=== PATIENT | male | born 1965 | race Caucasian/White ===

== ENCOUNTER 2020-05-28 08:12 | Outpatient (REF) | payer OTHER, SELFPAY ==
[2020-05-28 09:35] LABS: Basophils Percent Auto 0.8 % (0-2); Eosinophils Absolute Auto 0.2 X10*3/uL (0.0-0.4); Eosinophils Percent Auto 3.2 % (0-4); Hematocrit 44.1 % (42-52); Hemoglobin 14.6 g/dl (14.0-18.0); Imm Gran Abs Auto 0.01 X10*3/uL (0.00-0.03); Imm Gran Pct Auto 0.2 % (0.0-0.4); Lymphocytes Absolute Auto 1.8 X10*3/uL (1.2-4.9); Lymphocytes Percent Auto 35.2 % (20-40); MANUAL DIFF FLAG NO; Mean Corpuscular HGB Conc 33.1 g/dl (31.0-36.0); Mean Corpuscular Hemoglobin 30.9 pg (27.0-33.0); Mean Corpuscular Volume 93.4 fL (80-98); Monocytes Absolute Auto 0.5 X10*3/uL (0.1-1.2); Monocytes Percent Auto 10.5 % (2-11); Neutrophils Absolute Auto 2.5 X10*3/uL (2.0-8.3); Neutrophils Percent Auto 50.1 % (45-73); Platelet Count 248 X10*3/uL (160-400); Red Blood Count 4.72 X10*6/uL (4.60-5.80); Red Cell Distribution Width 12.2 % (11.0-16.0)
[2020-05-28 10:08] LABS: Alanine Aminotransferase 22 U/L (0-40); Albumin Level 4.3 g/dL (3.5-5.0); Alkaline Phosphatase 91 U/L (39-117); Anion Gap 12 (12-20); Aspartate Amino Transferase 27 U/L (5-37); Bilirubin Total 0.6 mg/dL (0.0-1.0); Blood Urea Nitrogen 19 mg/dL (9-16); Carbon Dioxide 27 mmol/L (22-29); Chloride 106 mmol/L (96-108); Cholesterol 203 mg/dL; Estimated Glomerular Filt Rate 58; Glucose Random 106 mg/dL (60-115); HDL Cholesterol 68 mg/dL; LDL Cholesterol Calculated 124 mg/dl; Potassium 4.8 mmol/L (3.3-5.1); Sodium 140 mmol/L (135-145); Total Protein 7.3 g/dL (6.5-8.0); Triglycerides 55 mg/dL
[2020-05-28 10:30] LABS: Free T4 (Free Thyroxine) 0.93 ng/dL (0.71-1.85); Prostate Specific Antigen Scr 0.25 ng/mL (<0.05-4.0); Thyroid Stimulating Hormone 0.59 uIU/mL (0.32-4.0)
[2020-05-29 12:27] LABS: Folate 14.3 ng/mL (> or = 4.0); Vitamin B12 270 pg/mL (200-900)
== END 2020-05-28 08:13 | disposition home or self-care (01) ==
LOC: HO.LAB 08:12
PROVIDERS: PCP Internal Medicine; Visit Provider Internal Medicine
DX: Z00.00 Encounter for general adult medical examination without abnormal findings (principal); E78.00 Pure hypercholesterolemia, unspecified; Z12.5 Encounter for screening for malignant neoplasm of prostate
CPT/HCPCS: 36415; 80053; 80061; 82607; 82746; 84153; 84439; 84443; 85025

== ENCOUNTER 2021-03-31 07:32 | Outpatient (REF) | payer OTHER, SELFPAY ==
[2021-03-31 07:42] LABS: MANUAL DIFF FLAG NO
[2021-03-31 08:43] LABS: Basophils Percent Auto 0.3 % (0-2); Eosinophils Absolute Auto 0.2 X10*3/uL (0.0-0.4); Eosinophils Percent Auto 3.2 % (0-4); Hematocrit 45.4 % (42.0-52.0); Hemoglobin 15.1 g/dl (14.0-18.0); Imm Gran Abs Auto 0.01 X10*3/uL (0.00-0.03); Imm Gran Pct Auto 0.2 % (0.0-0.4); Lymphocytes Percent Auto 33.4 % (20-40); Mean Corpuscular HGB Conc 33.3 g/dl (31.0-36.0); Mean Corpuscular Hemoglobin 31.5 pg (27.0-33.0); Mean Corpuscular Volume 94.6 fL (80.0-98.0); Mean Platelet Volume 8.8 fL (9.4-12.4); Monocytes Absolute Auto 0.6 X10*3/uL (0.1-1.2); Monocytes Percent Auto 9.3 % (2-11); Neutrophils Absolute Auto 3.2 x10*3/uL (2.0-8.3); Neutrophils Percent Auto 53.6 % (45-73); Platelet Count 260 X10*3/uL (160-400); Red Cell Distribution Width 12.3 % (11.0-16.0); White Blood Count 5.9 X10*3/uL (4.8-10.8)
[2021-03-31 09:03] LABS: Estimated Average Glucose 108 mg/dL; Hemoglobin A1c % 5.4 %
[2021-03-31 09:13] LABS: Alanine Aminotransferase 21 U/L (0-40); Albumin Level 4.2 g/dL (3.5-5.0); Alkaline Phosphatase 85 U/L (39-117); Anion Gap 10 (12-20); Aspartate Amino Transferase 20 U/L (5-37); Bilirubin Total 0.6 mg/dL (0.0-1.0); Blood Urea Nitrogen 18 mg/dL (9-16); Calcium 9.8 mg/dL (8.4-10.2); Carbon Dioxide 28 mmol/L (22-29); Chloride 107 mmol/L (96-108); Cholesterol 223 mg/dL; Estimated Glomerular Filt Rate > 60; Glucose Random 101 mg/dL (60-115); HDL Cholesterol 74 mg/dL; LDL Cholesterol Calculated 133 mg/dl; Potassium 4.4 mmol/L (3.3-5.1); Sodium 141 mmol/L (135-145); Total Protein 7.4 g/dL (6.5-8.0); Triglycerides 84 mg/dL
[2021-03-31 09:41] LABS: Folate 15.9 ng/mL (> or = 4.0); Vitamin B12 315 pg/mL (200-900)
[2021-03-31 09:43] LABS: Free T4 (Free Thyroxine) 1.05 ng/dL (0.71-1.85); Prostate Specific Antigen Scr 0.18 ng/mL (<0.05-4.0); Thyroid Stimulating Hormone 1.36 uIU/mL (0.32-4.0)
== END 2021-03-31 07:33 | disposition home or self-care (01) ==
LOC: HO.LAB 07:32
PROVIDERS: PCP Internal Medicine; Visit Provider Internal Medicine
DX: K21.9 Gastro-esophageal reflux disease without esophagitis (principal); E78.00 Pure hypercholesterolemia, unspecified; N28.9 Disorder of kidney and ureter, unspecified; R73.02 Impaired glucose tolerance (oral)
CPT/HCPCS: 36415; 80053; 80061; 82607; 82746; 83036; 84153; 84439; 84443; 85025

== ENCOUNTER 2021-06-22 14:28 | Outpatient (REF) | payer OTHER, SELFPAY ==
--- NOTE | ~2021-06-22 | US_ITS ---
EXAMINATION: US THYROID CLINICAL INFORMATION: Goiter COMPARISON: None TECHNIQUE: Linear transducer grayscale and color Doppler examination with attention to the region of the thyroid. FINDINGS: SIZE: Measurements of the thyroid lobes and nodules are given in sagittal, anteroposterior and transverse dimensions respectively. Right Thyroid Lobe: 5.5 x 1.8 x 1.8 cm, volume 9.3 mL. Parenchyma: The gland echotexture is homogeneous. Thyroid vascularity is normal. Left Thyroid Lobe: 5.5 x 2.1 x 2.2 cm, volume 13.3 mL. Parenchyma: The gland echotexture is homogeneous. Thyroid vascularity is increased. Isthmus: 0.7 cm in maximum AP dimension. Estimated total number of nodules greater than or equal to 1 cm: 1. [employer] nodules are described as follows: 1. Location: Left lower. Size: 3.1 x 1.7 x 2.8 cm, volume 7.59 mL. Nodule characteristics: Composition: Solid/almost completely solid (2). Echogenicity: Hypoechoic (2). Shape: Not taller than wide (0). Margins: Lobulated (2). Echogenic Foci: Punctate echogenic foci (3). ACR TI-RADS total points: 9 ACR TI-RADS category: 5 2. Location: Right mid lateral. Size: 0.5 x 0.3 x 0.4 cm, volume 0.04 mL. Nodule characteristics: Composition: Spongiform (0). Echogenicity: 0 Shape: 0 Margins: 0 Echogenic Foci: 0 ACR TI-RADS total points: 0 ACR TI-RADS category: 1 NODES: There are 2 normal-appearing right cervical lymph nodes in zone 3. These measure 1.3 x 0.5 x 0.7 cm and 1.2 x 0.3 x 0.9 cm. There is a left cervical lymph node in zone 4. This is upper normal in size. This measures 1.6 x 0.5 x 1 cm. This has a slitlike hilum and normal hilar flow. US/US thyroid IMPRESSION: Suspicious nodule in the inferior left lobe and left side of the isthmus. According to TI RADS criteria, fine needle aspiration recommended. ACR TI-RADS RECOMMENDATION REFERENCE: Ultrasound-guided fine-needle aspiration, followup ultrasound, no further follow up. * TR1 (0 point) and TR 2 (2 points): No FNA or follow up * TR3 (3 points): FNA if more than or equal to 2.5 cm in maximum dimension, followup ultrasound in 1, 3 and 5 years if 1.5 to 2.4 cm in maximum dimension. Findings will be communicated by the [place] work flow physical damage appraiser. * TR4 (4-6 points): FNA if more than or equal to 1.5 cm in maximum dimension, followup ultrasound in 1, 2, 3 and 5 years if 1 to 1.4 cm in maximum dimension. * TR5 (more than or equal to 7 points): FNA if more than or equal to 1 cm in maximum dimension, followup ultrasound every year for 5 years if 0.5 to 0.9 cm in maximum dimension. * TR3, TR4 or TR5 nodules that are below the size threshold for follow up receive no follow up.
== END 2021-06-22 14:29 | disposition home or self-care (01) ==
LOC: HO.HMGCX 14:28
PROVIDERS: PCP Internal Medicine; Visit Provider Internal Medicine
DX: E04.9 Nontoxic goiter, unspecified (principal)
CPT/HCPCS: 76536

== ENCOUNTER → 2021-07-07 11:05 | Outpatient (BNVA) | payer OTHER, SELFPAY | PROVIDERS: PCP Internal Medicine; Visit Provider Internal Medicine Endocrinology, Diabetes & Metabolism | DX: Z13.89 Encounter for screening for other disorder (principal) ==

== ENCOUNTER 2021-07-11 11:23 | Outpatient (REF) | payer OTHER, SELFPAY ==
--- NOTE | ~2021-07-11 | US_ITS ---
EXAMINATION: US ULTRASOUND-GUIDED FINE-NEEDLE ASPIRATION LEFT THYROID NODULE CLINICAL INFORMATION: Nontoxic heterogeneous left thyroid nodule. COMPARISON: None. TECHNIQUE: Following explaining ultrasound-guided left thyroid nodule fine-needle aspiration biopsy procedure, benefits and risks, a written consent was obtained. Patient was placed supine on the ultrasound stretcher with head extended. Preliminary ultrasound imaging was performed and an optimal site was selected along the left neck for biopsy access. The anterior neck area was cleaned and draped in the usual sterile manner. 1% lidocaine was injected at the puncture site. Under sterile ultrasound guidance, a 22-gauge fine-needle biopsy attached to a syringe was advanced into the left thyroid nodule and biopsy aspiration was performed x5. The lesion appears very vascular. Also the cystic area of the lesion was aspirated. Postprocedure complete hemostasis was achieved at the puncture site. Sterile dressing was applied postprocedure. FINDINGS: There is a complex 3.1 cm nodule left lobe. A 5-pass fine-needle biopsy aspiration of this nodule was performed. Preliminary results from pathologist revealed few clumped cells on one of the slides. Further cytology testing to follow. US/US guided fine needle asp IMPRESSION: Successful ultrasound-guided left thyroid nodule fine needle biopsy/aspiration performed without immediate complications.
[2021-07-11] MEDS: Lidocaine HCl 1 % MPF 5 ML VIAL SUBCUT (12:26)
== END 2021-07-11 11:24 | disposition home or self-care (01) ==
LOC: HO.US 11:23
PROVIDERS: Visit Provider Internal Medicine Endocrinology, Diabetes & Metabolism
DX: E04.1 Nontoxic single thyroid nodule (principal)
CPT/HCPCS: 10005; 88172; 88173; 88177; 88305

== ENCOUNTER → 2021-07-26 10:31 | Outpatient (BNVA) | payer OTHER, SELFPAY | PROVIDERS: PCP Internal Medicine; Visit Provider Internal Medicine Endocrinology, Diabetes & Metabolism | DX: E04.9 Nontoxic goiter, unspecified (principal) ==

== ENCOUNTER 2021-08-17 11:17 | Outpatient (REF) | payer OTHER, SELFPAY ==
[2021-08-17 13:26] LABS: Urine Cytology See Pathology rpt
[2021-08-17 13:47] LABS: Appearance Urine CLEAR; Color Urine YELLOW; Glucose Urine UA NEG (NEG); Leukocyte Esterase Urine NEG (NEG); Nitrite Urine NEG (NEG); PH 6.5 (5.0-8.0); Urine Blood TRACE (NEG); Urine Ketones NEG (NEG); Urine Protein NEG (NEG-TRACE)
[2021-08-17 14:22] LABS: Squamous Epithelial Cell Urine 1+ /LPF; WBC Urine 0 /HPF (0-4)
== END 2021-08-17 11:18 | disposition home or self-care (01) ==
LOC: HO.LAB 11:17
PROVIDERS: PCP Internal Medicine; Visit Provider Internal Medicine
DX: R31.9 Hematuria, unspecified (principal)
CPT/HCPCS: 81001; 88112

== ENCOUNTER 2021-09-06 10:33 | Outpatient (REF) | payer OTHER, SELFPAY ==
--- NOTE | ~2021-09-06 | US_ITS ---
EXAMINATION: US SCROTUM CLINICAL INFORMATION: Testicular mass. COMPARISON: None. TECHNIQUE: A sonogram of the scrotum was performed assessing vines-scale appearance and color Doppler flow. Spectral Doppler analysis of the arterial and venous flow were performed in the testes bilaterally. FINDINGS: RIGHT: Right testicle measures 4.9 x 2.2 x 3.2 cm, volume 18.0 mL. No focal testicular parenchymal lesions are visualized. Spectral Doppler analysis of the arterial and venous flow is normal in the right testis. Right epididymal head is normal in size. There is small echogenic appendix seen adjacent to the epididymal head. This is not clinically palpable at this time but measures 0.2 x 0.2 cm. No right hydrocele or varicocele is seen. Right epididymal Doppler flow is normal. LEFT: Left testicle measures 4.6 x 2.2 x 3.5 cm, volume 18.5 mL. No focal testicular parenchymal lesions are visualized. Spectral Doppler analysis of the arterial and venous flow is normal in the left testis. Left epididymal head is normal in size. No left hydrocele or varicocele is seen. Left epididymal Doppler flow is normal. US/US scrotum IMPRESSION: Unremarkable ultrasound scrotum. There is small echogenic right appendix adjacent to the right epididymal head.
== END 2021-09-06 10:34 | disposition home or self-care (01) ==
LOC: HO.US 10:33
PROVIDERS: Visit Provider Internal Medicine
DX: N50.89 Other specified disorders of the male genital organs (principal)
CPT/HCPCS: 76870

== ENCOUNTER 2021-10-20 09:41 | Outpatient (REF) | payer OTHER, SELFPAY ==
[2021-10-20 16:33] LABS: Urine Cytology See Pathology rpt
== END 2021-10-20 09:42 | disposition home or self-care (01) ==
LOC: HO.LAB 09:41
DX: R31.9 Hematuria, unspecified (principal)
CPT/HCPCS: 88112

== ENCOUNTER 2021-10-27 08:05 | Outpatient (REF) | payer OTHER, SELFPAY ==
--- NOTE | 2021-10-27 08:41 | PM.OP ---
Brief Operative Note Date of Service: 10/27/21 Pre-op diagnosis: Multinodular Thyroid Procedure: This is doctor Nevaeh Lewis. This is an ultrasound-guided fine-needle aspiration report. Date of Examination: 10/27/2021 Indication: Multinodular Thyroid Porcedure: Procedure was explained to the patient. Alternatives, the risk and benefits were discussed. Written consent was obtained. A time-out was also obtained. After sterile preparation, fine-needle aspiration of a left mid pole 3.1 cm thyroid nodule was performed using direct ultrasound guidance to confirm accurate needle placement. Six aspirations were made using 25 gauge needles. Samples were submitted for cytology. 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 The patient tolerated the procedure well. Aftercare instructions were provided. Impression: Uncomplicated fine needle aspiration biopsy of a left mid pole 3.1 cm thyroid nodule under ultrasound guidance. Surgeon: Nevaeh Lewis, DO Was an Internal Communications Specialist used for this Procedure?: No Estimated blood loss (mL): 0
[2021-10-27] MEDS: Lidocaine HCl 1 % 20 ML VIAL SUBCUT (11:45)
== END 2021-10-27 08:06 | disposition home or self-care (01) ==
LOC: HO.US 08:05
PROVIDERS: Visit Provider Internal Medicine Endocrinology, Diabetes & Metabolism
DX: E04.9 Nontoxic goiter, unspecified (principal)
CPT/HCPCS: 10005; 88172; 88173; 88177; 88305

== ENCOUNTER 2021-12-22 08:06 | Outpatient (REF) | payer OTHER, SELFPAY ==
--- NOTE | ~2021-12-22 | US_ITS ---
EXAMINATION: US RETROPERITONEAL LIMITED (RENAL ONLY) CLINICAL INFORMATION: Hematuria, unspecified. COMPARISON: Ultrasound bladder 11/20/2018. TECHNIQUE: Real-time imaging of the kidneys. FINDINGS: RIGHT KIDNEY: 9.7 x 5.3 x 5.5 cm (SAG x AP x TRV). The kidney is normal in size, contour, and echogenicity. Renal cortical thickness is normal. No calculi or focal parenchymal lesions. No hydronephrosis. LEFT KIDNEY: 9.5 x 5.2 x 4.8 cm (SAG x AP x TRV). The kidney is normal in size, contour, and echogenicity. Renal cortical thickness is normal. No calculi or focal parenchymal lesions. No hydronephrosis. US/US renal BI IMPRESSION: Unremarkable renal ultrasound..
== END 2021-12-22 08:07 | disposition home or self-care (01) ==
LOC: HO.US 08:06
DX: R31.9 Hematuria, unspecified (principal)
CPT/HCPCS: 76775

== ENCOUNTER 2022-01-13 10:24 | Outpatient (REF) | payer OTHER, SELFPAY ==
[2022-01-13 11:24] LABS: Albumin Level 4.4 g/dL (3.5-5.0); Phosphorus 2.9 mg/dL (2.7-4.5)
[2022-01-13 11:48] LABS: Free T4 (Free Thyroxine) 1.14 ng/dL (0.71-1.85); Thyroid Stimulating Hormone 0.79 uIU/mL (0.32-4.0); Vitamin D 25-OH Total 32.2 ng/mL (>30)
[2022-01-15 12:56] LABS: Calcium (PTHI) 9.6 mg/dL (8.6-10.3); PTHI 36 pg/mL (16-77)
[2022-01-19 14:02] LABS: PSA, Ultra Sensitive 0.29 ng/mL
== END 2022-01-13 10:25 | disposition home or self-care (01) ==
LOC: HO.LAB 10:24
PROVIDERS: Internal Medicine; PCP Internal Medicine; Visit Provider Urology
DX: Z12.5 Encounter for screening for malignant neoplasm of prostate (principal); E04.1 Nontoxic single thyroid nodule
CPT/HCPCS: 36415; 82040; 82306; 83970; 84100; 84153; 84439; 84443

== ENCOUNTER 2022-04-06 08:28 | Outpatient (REF) | payer OTHER, SELFPAY ==
[2022-04-06 08:41] LABS: MANUAL DIFF FLAG NO
[2022-04-06 08:58] LABS: Appearance Urine Clear; Color Urine Yellow; Glucose Urine UA Negative (Negative); Leukocyte Esterase Urine Negative (Negative); Nitrite Urine Negative (Negative); UMIC TRIGGER UA YES; Urine Blood Trace (Negative); Urine Ketones Negative (Negative); Urine Protein Negative (Neg-Trace)
[2022-04-06 09:03] LABS: Bacteria Urine None Seen (None Seen); Hyaline Casts Urine 0-2 /LPF (0-2); RBC Urine 0-2 /HPF (0-2); Squamous Epithelial Cell Urine 0-2 /HPF (0-2); WBC Urine 0-5 /HPF (0-5)
[2022-04-06 09:22] LABS: Basophils Percent Auto 0.5 % (0-2); Eosinophils Absolute Auto 0.2 X10*3/uL (0.0-0.4); Eosinophils Percent Auto 2.6 % (0-4); Hemoglobin 14.8 g/dl (14.0-18.0); Imm Gran Abs Auto 0.01 X10*3/uL (0.00-0.03); Imm Gran Pct Auto 0.2 % (0.0-0.4); Lymphocytes Percent Auto 32.2 % (20-40); Mean Corpuscular HGB Conc 33.6 g/dl (31.0-36.0); Mean Corpuscular Hemoglobin 31.8 pg (27.0-33.0); Mean Corpuscular Volume 94.4 fL (80.0-98.0); Monocytes Absolute Auto 0.6 X10*3/uL (0.1-1.2); Monocytes Percent Auto 9.1 % (2-11); Neutrophils Absolute Auto 3.4 x10*3/uL (2.0-8.3); Neutrophils Percent Auto 55.4 % (45-73); Platelet Count 266 X10*3/uL (160-400); Red Blood Count 4.66 X10*6/uL (4.60-5.80); Red Cell Distribution Width 12.6 % (11.0-16.0); White Blood Count 6.1 X10*3/uL (4.8-10.8)
[2022-04-06 09:23] LABS: Estimated Average Glucose 105 mg/dL; Hemoglobin A1c % 5.3 %
[2022-04-06 09:41] LABS: Alanine Aminotransferase 22 U/L (0-40); Alkaline Phosphatase 92 U/L (39-117); Anion Gap 12 (12-20); Aspartate Amino Transferase 22 U/L (5-37); Bilirubin Total 0.8 mg/dL (0.0-1.0); Blood Urea Nitrogen 16 mg/dL (9-16); Calcium 9.2 mg/dL (8.4-10.2); Carbon Dioxide 26 mmol/L (22-29); Chloride 105 mmol/L (96-108); Cholesterol 204 mg/dL; Estimated Glomerular Filt Rate > 60; Glucose Random 102 mg/dL (60-115); HDL Cholesterol 67 mg/dL; LDL Cholesterol Calculated 126 mg/dl; Potassium 4.4 mmol/L (3.3-5.1); Sodium 139 mmol/L (135-145); Total Protein 7.1 g/dL (6.5-8.0); Triglycerides 56 mg/dL
[2022-04-06 09:59] LABS: Free T4 (Free Thyroxine) 1.09 ng/dL (0.71-1.85); Thyroid Stimulating Hormone 1.31 uIU/mL (0.32-4.0)
[2022-04-07 08:23] LABS: Lyme Abs Screen <0.90 index
== END 2022-04-06 08:29 | disposition home or self-care (01) ==
LOC: HO.LAB 08:28
PROVIDERS: Absent Provider Internal Medicine; PCP Internal Medicine; Visit Provider Nurse Practitioner Family
DX: M25.50 Pain in unspecified joint (principal); R31.9 Hematuria, unspecified; E04.1 Nontoxic single thyroid nodule; E78.00 Pure hypercholesterolemia, unspecified; R73.02 Impaired glucose tolerance (oral)
CPT/HCPCS: 36415; 80053; 80061; 81001; 83036; 84439; 84443; 85025; 86617; 86618

== ENCOUNTER 2022-06-20 15:08 | Outpatient (REF) | payer OTHER, SELFPAY ==
[2022-06-20 15:37] LABS: Hematocrit 43.7 % (42.0-52.0); Hemoglobin 14.7 g/dl (14.0-18.0); Mean Corpuscular HGB Conc 33.6 g/dl (31.0-36.0); Mean Corpuscular Hemoglobin 31.1 pg (27.0-33.0); Mean Corpuscular Volume 92.6 fL (80.0-98.0); Mean Platelet Volume 8.8 fL (9.4-12.4); Platelet Count 252 X10*3/uL (160-400); Red Blood Count 4.72 X10*6/uL (4.60-5.80); Red Cell Distribution Width 12.6 % (11.0-16.0); White Blood Count 8.5 X10*3/uL (4.8-10.8)
[2022-06-20 16:29] LABS: Anion Gap 11 (12-20); Blood Urea Nitrogen 17 mg/dL (9-16); Calcium 9.6 mg/dL (8.4-10.2); Carbon Dioxide 28 mmol/L (22-29); Chloride 104 mmol/L (96-108); Estimated Glomerular Filt Rate > 60; Glucose Random 107 mg/dL (60-115); Potassium 4.5 mmol/L (3.3-5.1); Sodium 138 mmol/L (135-145)
== END 2022-06-20 15:09 | disposition home or self-care (01) ==
LOC: HO.LAB 15:08
PROVIDERS: Urology; PCP Internal Medicine; Visit Provider Nurse Practitioner Family
DX: I49.8 Other specified cardiac arrhythmias (principal)
CPT/HCPCS: 36415; 80048; 85027

== ENCOUNTER 2022-06-22 08:02 | Outpatient (REF) | payer OTHER, SELFPAY ==
--- NOTE | ~2022-06-22 | CT_ITS ---
EXAMINATION: CT ABDOMEN AND PELVIS WITHOUT AND WITH CONTRAST CLINICAL INFORMATION: Hematuria. COMPARISON: None available. TECHNIQUE: Multidetector volumetric imaging was performed of the abdomen and pelvis before and after the IV administration of 85 mL of Omnipaque 300 intravenous contrast. Sagittal and coronal reformatted images were obtained on the technologist's workstation. This CT examination was performed using dose optimization techniques as appropriate, variously including the following: *Automated exposure control *Adjustment of mA and/or kV according to patient size (this includes techniques or standardized protocols for targeted exams where dose is matched to indication/reason for exam; i.e. extremities or head) *Use of iterative reconstruction technique DLP: 690 mGy-cm FINDINGS: LUNG BASES: The lung bases are clear. LIVER, GALLBLADDER, AND BILIARY TREE: The liver is normal in size, shape, and attenuation. There is an 8 mm hypodensity right, 5 mm and 1 cm hypodensities in left hepatic lobes, probable cysts. No biliary ductal dilatation is present. The gallbladder is unremarkable with no evidence of radiopaque gallstones, gallbladder wall thickening, or obvious pericholecystic inflammatory changes. PANCREAS: Unremarkable. SPLEEN: Unremarkable. ADRENAL GLANDS: Unremarkable. KIDNEYS AND URETERS: The kidneys are normal in size, shape, and attenuation. Precontrast there is no radiopaque renal calculi. Postcontrast there are symmetrical bilateral nephrograms with a nonenhancing millimeter hypodensity in the midpole of the right kidney, probable cyst. No solid enhancing mass or hydroureteronephrosis. Left kidney measures 11.6 cm in length and right kidney measures 9.5 cm in length. Both ureters are well opacified without an intraluminal filling defect or narrowing. Bilateral pelvicalyceal systems are unremarkable. BLADDER: There is moderate scattered stool in the colon without significant distention. The small bowel loops are normal caliber. Appendix is not visualized. GASTROINTESTINAL TRACT: The small and large bowel are unremarkable. The appendix is unremarkable. ABDOMINAL WALL: No significant hernia is appreciated. LYMPH NODES: Normal. VASCULAR: Unremarkable. PELVIC VISCERA: Unremarkable. OSSEOUS STRUCTURES: No aggressive lytic or sclerotic process seen. There is mild ventral spondylosis throughout dorsal spine. CT/CT abdomen pelvis wo/w IV con IMPRESSION: 1. No radiopaque urolith or hydroureteronephrosis. There is a small cyst midpole right kidney. 2. Probable bilateral liver cysts. 3. Mild constipation. Fleischner guidelines were followed.
[2022-06-22] MEDS: iohexoL 350 MG/ML 100 ML INFUS..BTL IV (08:56)
== END 2022-06-22 08:03 | disposition home or self-care (01) ==
LOC: HO.CT 08:02
PROVIDERS: PCP Internal Medicine; Visit Provider Urology
DX: R31.9 Hematuria, unspecified (principal)
CPT/HCPCS: 74178; Q9967

== ENCOUNTER 2022-06-29 13:24 | Outpatient (REF) | payer OTHER, SELFPAY ==
--- NOTE | ~2022-06-29 | XR_ITS ---
EXAMINATION: XR CHEST CLINICAL INFORMATION: Cough. COMPARISON: None available. TECHNIQUE: 2 views of the chest were obtained. FINDINGS: The lungs are hyperinflated and clear of acute process. The heart size and pulmonary vascularity is normal. No gross bony abnormality seen. XR/XR chest 2V IMPRESSION: Hyperinflated lungs without acute process.
== END 2022-06-29 13:25 | disposition home or self-care (01) ==
LOC: HO.HMGCX 13:24
PROVIDERS: PCP Internal Medicine; Visit Provider Physician Assistant Medical
DX: R05.9 Cough, unspecified (principal)
CPT/HCPCS: 71046

== ENCOUNTER 2022-06-29 13:29 | Outpatient (REF) | payer OTHER, SELFPAY ==
[2022-06-29 17:38] LABS: Influenza A PCR NEGATIVE (Negative); Influenza B PCR NEGATIVE (Negative); Resp Syncy Virus RNA Qual PCR NEGATIVE (Negative); SARS COV2 PCR INHOUSE NEGATIVE (Negative)
== END 2022-06-29 13:30 | disposition home or self-care (01) ==
LOC: HO.LAB 13:29
PROVIDERS: Visit Provider Physician Assistant Medical
DX: R05.9 Cough, unspecified (principal); Z20.822 Contact with and (suspected) exposure to COVID-19
CPT/HCPCS: 0241U

== ENCOUNTER → 2022-07-20 09:32 | Outpatient (BNVA) | payer OTHER, SELFPAY | PROVIDERS: PCP Internal Medicine; Visit Provider Urology ==

== ENCOUNTER → 2022-08-01 16:28 | Outpatient (BNVA) | payer OTHER, SELFPAY | PROVIDERS: PCP Internal Medicine; Visit Provider Internal Medicine Endocrinology, Diabetes & Metabolism ==

== ENCOUNTER 2022-08-04 08:34 | Outpatient (REF) | payer OTHER, SELFPAY ==
[2022-08-04 11:31] LABS: Free T4 (Free Thyroxine) 1.01 ng/dL (0.71-1.85); Thyroid Stimulating Hormone 1.71 uIU/mL (0.32-4.0)
== END 2022-08-04 08:35 | disposition home or self-care (01) ==
LOC: HO.10HDL 08:34
PROVIDERS: Visit Provider Internal Medicine Endocrinology, Diabetes & Metabolism
DX: E04.1 Nontoxic single thyroid nodule (principal); I49.8 Other specified cardiac arrhythmias
CPT/HCPCS: 36415; 84439; 84443

== ENCOUNTER → 2022-08-04 08:56 | Outpatient (REF) | payer OTHER, SELFPAY ==
--- NOTE | 2022-08-04 08:59 | HM_ITS ---
* Total monitoring time 3 days. * Underlying rhythm is sinus. Average ventricular rate 77/Min. Range 47 to 143/Min. * Rare supraventricular and ventricular ectopy. * No sustained arrhythmias. * No significant pauses or AV blocks. * No patient markers or events in diary. MTDD
== END ==
LOC: HO.CARD 08:56
PROVIDERS: PCP Internal Medicine; Visit Provider Nurse Practitioner Family
DX: I49.8 Other specified cardiac arrhythmias (principal)
CPT/HCPCS: 93242

== ENCOUNTER → 2022-08-04 08:59 | Outpatient (BNV) | payer OTHER, SELFPAY | PROVIDERS: PCP Internal Medicine; Visit Provider Internal Medicine | DX: I47.1 Supraventricular tachycardia (principal) | CPT/HCPCS: 93244 ==

== ENCOUNTER 2022-09-25 09:30 | Outpatient (AMB) | payer OTHER, SELFPAY ==
--- NOTE | 2022-09-25 10:11 | MHC.PC.OV ---
Intake Visit Reasons: Thyroid nodule follow up Intake Note: Requesting sleep study Allergies penicillin G Allergy (Unknown, Verified 09/25/22 10:11) rash Penicillins [PENICILLINS] Allergy (Unknown, Verified 09/25/22 10:11) HIVES Tobacco use date assessed: 06/09/22 Dental Screening Dental Screen Date: 09/25/22 Did you have a dental visit in the last 12 months?: Yes Did you have a dental problem in the last 6 months where you did not have access to dental care?: No Was dental information given to patient?: Patient has dentist [facility] Medical History Joint pain Nose abrasion Shoulder pain, bilateral Simple laceration of nose Surgical History Hx of biopsy S/P fine needle aspiration Family History (Updated 09/25/22 @ 10:12 by Amalia Wolff CMA) Father Myocardial infarct Prostate cancer Mother Lung cancer Brother Alcohol abuse Sister Alcohol abuse Social History Housing: House Alcohol intake: current Alcohol intake frequency: holidays/special occasions only Patient Tobacco Use Status: Former Tobacco user Tobacco use type: Cigarette Years Smoked: 1989 e-Cigarette/Vaping Use: Never Used Second Hand Smoke Exposure: Yes service: No Current occupational status: employed Cognitive needs: No Hearing needs: No Vision needs: No Questionnaire PHQ-9 Over the last 2 weeks, how often have you been bothered by any of the following problems? 1. Little interest or pleasure in doing things: not at all 2. Feeling down, depressed, or hopeless: not at all 3. Trouble falling or staying asleep, or sleeping too much: not at all 4. Feeling tired or having little energy: not at all 5. Poor appetite or overeating: not at all 6. Feeling bad about yourself - or that you are a failure or have let yourself or your family down: not at all 7. Trouble concentrating on things, such as reading the newspaper or watching television: not at all 8. Moving or speaking so slowly that other people could have noticed. Or the opposite - being so fidgety or restless that you have been moving around a lot more than usual: not at all 9. Thoughts that you would be better off or of hurting yourself in some way: not at all Total score: 0 Depression Screening Interpretation: Negative 77642 - PHQ-9 Billing: Yes Source: Developed by Drs. Alexsander Alanis, Charity Momin, Abiodun Mcdonald and colleagues, with an educational loan from [employer]. Thrive Questionnaire Date Thrive assessed: 06/09/22 AUDIT C Alcohol Use Questionnaire (AUDIT-C) 1. How often do you have a drink containing alcohol?: Never 3. How often do you have six or more drinks on one occasion?: Never Total Score: 0 Score Reviewed/Action Taken: No VIVEK-7 AMB Questionnaire VIVEK-7 Date VIVEK - 7 assessed: 03/27/22 Source: Developed by Drs. Alexsander Alanis, Charity Momin, Abiodun Mcdonald and colleagues, with an educational loan from [employer]. Physical exam (Primary Care) Tobacco/Smoking Status: Tobacco use Status Tobacco use date assessed 06/09/22 09/25/22 10:12 Patient Tobacco Use Status Former Tobacco user 09/25/22 10:12 Tobacco use type Cigarette 09/25/22 10:12 e-Cigarette/Vaping Use Never Used 09/25/22 10:12 PHQ-9: PHQ-9 Score PHQ-9: Total score 0 09/25/22 10:12 Depression Screening Interpretation: Negative Thrive Assessment: Date of Thrive Assessment Date Thrive assessed 06/09/22 09/25/22 10:12 Const General: alert; No acute distress Eyes Conjunctivae: conjunctivae normal Resp Auscultation: clear to auscultation bilaterally Cardio Rate: regular rate Rhythm: regular rhythm GI Inspection: Yes normal to inspection Extrem General: Yes normal to inspection and No edema Assessment and Plan Assessment & Plan (1) Periodic heart flutter: Code(s): I49.8 - Other specified cardiac arrhythmias Plan: holter no results, will request for this again (2) GERD (gastroesophageal reflux disease): Code(s): K21.9 - Gastro-esophageal reflux disease without esophagitis Plan: Avoid the foods that causes that usually spicy foods, tomato products, juices, coffee, soda and foods that your sensitive to. After eating do not lie down, allow 3-4 hours before in lie down. And keep the head of bed above 30 degrees to avoid the acid from going up. (3) Hypersomnia: Code(s): G47.10 - Hypersomnia, unspecified Plan: Sleep study requested. [place] Sleepiness Scale 14 (4) Thyroid nodule: Comment: June 2022 status post left thyroid lobectomy Dr. Craft Code(s): E04.1 - Nontoxic single thyroid nodule Plan: Status post thyroid lobectomy. Follows up with endocrinology but July 2022 last blood work is negative Orders: Orders RT home sleep study Today G47.10 - Hypersomnia, unspecified ECG 3 day holter monitor Today I49.8 - Other specified cardiac arrhythmias Coding Level of Care Code Est Pt Level 4 (11845) Diagnoses Periodic heart flutter I49.8 GERD (gastroesophageal reflux disease) K21.9 Hypersomnia G47.10 Thyroid nodule E04.1
== END 2022-09-25 12:11 | disposition home or self-care (01) ==
LOC: HO.HMGH 10:08
PROVIDERS: PCP Internal Medicine; Visit Provider Internal Medicine
DX: I49.8 Other specified cardiac arrhythmias (principal); K21.9 Gastro-esophageal reflux disease without esophagitis; G47.10 Hypersomnia, unspecified; E04.1 Nontoxic single thyroid nodule
CPT/HCPCS: 99214

== ENCOUNTER → 2022-11-13 10:02 | Outpatient (REF) | payer OTHER, SELFPAY | LOC: HO.SL 10:02 | PROVIDERS: PCP Internal Medicine; Visit Provider Internal Medicine | DX: G47.10 Hypersomnia, unspecified (principal); R06.83 Snoring | CPT/HCPCS: 95806 ==

== ENCOUNTER → 2022-11-13 10:24 | Outpatient (BNV) | payer OTHER, SELFPAY | PROVIDERS: PCP Internal Medicine; Visit Provider Internal Medicine | DX: R06.83 Snoring (principal) | CPT/HCPCS: 95806 ==

== ENCOUNTER 2022-12-06 14:48 | Outpatient (REF) | payer OTHER, SELFPAY ==
[2022-12-06 16:38] LABS: Blood Urea Nitrogen 16 mg/dL (9-16); Estimated Glomerular Filt Rate > 60
[2022-12-06 16:59] LABS: PSA,Total (Free>4and<10) 0.27 ng/mL (0.00-4.00)
== END 2022-12-06 14:49 | disposition home or self-care (01) ==
LOC: HO.LAB 14:48
PROVIDERS: Urology; PCP Internal Medicine; Visit Provider Urology
DX: R31.9 Hematuria, unspecified (principal); Z12.5 Encounter for screening for malignant neoplasm of prostate
CPT/HCPCS: 36415; 82565; 84153; 84520

== ENCOUNTER 2022-12-28 08:48 | Outpatient (AMB) | payer OTHER, SELFPAY ==
--- NOTE | 2022-12-28 08:58 | A.OFFVIS_ITS ---
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 LV?07/20/22: CTAP results reviewed?06/22/22-- Essentially within normal limits with small cyst midpole right kidney. PSA results reviewed?01/13/22 - 0.29. 12/28/22: He has been experiencing urinary changes recently. He reports nocturia and urinary frequency that started about three months ago. He denies having gross hematuria in the past. He is not interested in trying medication at this time. He drinks three cups of coffee daily, and beer sometimes . He states that he is not drinking sufficient fluid/water throughout the day. 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 His father had a history of prostate cancer and is . I have discussed medication options for BPH including alpha-blockers and SE and 5 alpha reductase inhibitors. Also discussed lifestyle changes, cutting back on caffeine intake, increasing water intake. 12/06/22: PSA results reviewed: 0.27 Evaluation today?Blood: 10 Anthony/ul, leukocytes: 0 Julianne/uL. Plan Behaviourial modification for LUTS Annual PSA screening was ordered. The patient declined prostate exam Urinalysis with microscopic evaluation at the out-patient lab was ordered. [facility] Medical History Joint pain Simple laceration of nose Nose abrasion Shoulder pain, bilateral Surgical History Hx of biopsy S/P fine needle aspiration Family History Father Myocardial infarct Prostate cancer Mother Lung cancer Brother Alcohol abuse Sister Alcohol abuse Social History Housing: House Alcohol intake: current Alcohol intake frequency: holidays/special occasions only Patient Tobacco Use Status: Former Tobacco user Tobacco use type: Cigarette Years Smoked: stopped 1989 e-Cigarette/Vaping Use: Never Used Second Hand Smoke Exposure: Yes service: No Current occupational status: employed Cognitive needs: No Hearing needs: No Vision needs: No Review of Systems Const All systems reviewed & are unremarkable except as noted in HPI and below Reports no additional complaints Eyes Reports no additional complaints ENT Reports no additional complaints Card Reports no additional complaints Resp Reports no additional complaints GI Reports no additional complaints Musc Reports no additional complaints Skin/Breast Reports system reviewed and no additional complaints, except as documented Neuro Reports no additional complaints Psych Reports no additional complaints Endo Reports no additional complaints Tanner/Lymph Reports no additional complaints Aller/Immun Reports no additional complaints Physical Exam Const General: healthy appearing, no acute distress and well developed Orientation/consciousness: patient oriented x3 HEENT Head: Yes normocephalic and Yes atraumatic Eyes Conjunctivae: conjunctivae normal Neck Neck: Yes normal visual inspection Chest Chest palpation & inspection: normal inspection of the chest Resp Effort & Inspection: normal respiratory effort Cardio Rate: regular rate GI Inspection: Yes normal to inspection Skin General skin exam: no rashes or lesions noted Neuro General: patient oriented x3 Extrem General: Yes no pedal edema Psych Appearance: grossly normal Affect: normal affect Office Procedures Post Void Residual Post Residual Void Post Void Residual (PVR): 0 [id number] Void Residual by ultrasound Results AMB Urinalysis, Automated UA Leukoctes 0 Julianne/uL Last Edit by HARMONY Schneider on 12/28/22 09:20 UA Nitrite Negative Last Edit by HARMONY Schneider on 12/28/22 09:20 UA Urobilinogen 0.2 mg/dL Last Edit by HARMONY Schneider on 12/28/22 09:2 0 UA Protein 0 mg/dL Last Edit by HARMONY Schneider on 12/28/22 09:20 UA pH 6.0 Last Edit by HARMONY Schneider on 12/28/22 09:20 UA Blood 10 Anthony/uL Last Edit by HARMONY Schneider on 12/28/22 09:20 UA Specific [place] 1.020 Last Edit by HARMONY Schneider on 12/28/22 09: 20 UA Ketone Negative Last Edit by HARMONY Schneider on 12/28/22 09:20 UA Bilirubin 0 mg/dL Last Edit by HARMONY Schneider on 12/28/22 09:20 UA Glucose 0 mg/dL Last Edit by HARMONY Schneider on 12/28/22 09:20 Results Reviewed Results Reviewed: Laboratory Last Values Urine pH (Auto) 6.0 12/28/22 09:00 Specific [place] (Auto) 1.020 12/28/22 09:00 Urine Protein (Auto) 0 mg/dL 12/28/22 09:00 Glucose (UA)(Auto) 0 mg/dL 12/28/22 09:00 Urine Ketones (Auto) Negative 12/28/22 09:00 Urine Blood (Auto) 10 Anthony/uL 12/28/22 09:00 Urine Nitrite (Auto) Negative 12/28/22 09:00 Urine Bilirubin (Auto) 0 mg/dL 12/28/22 09:00 Urine Urobilinogen (Auto) 0.2 mg/dL 12/28/22 09:00 Leukocyte Esterase (Auto) 0 Julianne/uL 12/28/22 09:00 Assessment & Plan Assessment & Plan (1) Microscopic hematuria: Code(s): R31.29 - Other microscopic hematuria (2) BPH (benign prostatic hyperplasia): Code(s): N40.0 - Benign prostatic hyperplasia without lower urinary tract symptoms Plan Behaviourial modification for LUTS Annual PSA screening was ordered. The patient declined prostate exam Urinalysis with microscopic evaluation at the out-patient lab was ordered. Orders: Orders AMB Post Void Residual by ultrasound 12/28/22 N39.8 - Other specified disorders of urinary system UA w Microscopic 12/28/22 R31.29 - Other microscopic hematuria AMB Urinalysis Automated 12/28/22 Z13.9 - Encounter for screening, unspecified PSA,Total (Free>4and<10) 10 Months Z12.5 - Encounter for screening for malignant neoplasm of prostate Patient Instructions: The patient had an opportunity to ask questions regarding treatment plan. All questions were answered. Imaging, Laboratory studies and physical exam results were discussed and reviewed in detail. No major barriers to understanding were identified. The patient expressed understanding and agreement with the above treatment plan. The patient is aware they should contact our office by phone for worsening of their current condition or the appearance of new symptoms. Compliance is encouraged with any medications and followup testing that is ordered. It is a privilege to be allowed the opportunity to participate in the urologic care of your patient. If you have any questions or concerns regarding treatment for the above conditions please do not hesitate to contact me. The office telephone contact is [phone]. This note is constructed in part using voice recognition software. While every effort has been made to ensure accuracy respiratory care faculty errors may have been included. Yours sincerely, Bertrand Floyd MD Coding Level of Care Code Est Pt Level 4 (24719) Diagnoses Microscopic hematuria R31.29 BPH (benign prostatic hyperplasia) N40.0 CPT Codes Post Residual Void - PVR CPT Code: 89545-Eukq Void Residual by ultrasound ([id number])
== END 2022-12-28 09:45 | disposition home or self-care (01) ==
PROVIDERS: PCP Internal Medicine; Visit Provider Urology
DX: R31.29 Other microscopic hematuria (principal); N40.0 Benign prostatic hyperplasia without lower urinary tract symptoms
CPT/HCPCS: 99214

== ENCOUNTER → 2022-12-28 08:48 | Outpatient (BNVA) | payer OTHER, SELFPAY | PROVIDERS: Visit Provider Urology | DX: R31.29 Other microscopic hematuria (principal); N40.0 Benign prostatic hyperplasia without lower urinary tract symptoms | CPT/HCPCS: 51798; 81003 ==

== ENCOUNTER 2023-01-10 14:27 | Outpatient (AMB) | payer OTHER, SELFPAY ==
--- NOTE | 2023-01-10 14:29 | MHC.OFFVIS ---
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 He is here because he has been experiencing palpitations for a year. He describes a fluttering sensation in the chest which lasts for few minutes. He does not get dizzy or lightheaded. No chest discomfort shortness of breath. Before thyroid surgery he had an episode of vasovagal syncope. He is saying he does not drink water. Drinks 1 cup of coffee. Does not use any energy drinks but does chew tobacco. Not taking any prescription medications or [id number] medications currently. [facility] Medical History Joint pain Simple laceration of nose Nose abrasion Shoulder pain, bilateral Surgical History Hx of biopsy S/P fine needle aspiration Family History Father Myocardial infarct Prostate cancer Mother Lung cancer Brother Alcohol abuse Sister Alcohol abuse Social History Housing: House Alcohol intake: current Alcohol intake frequency: holidays/special occasions only Patient Tobacco Use Status: Former Tobacco user Tobacco use type: Cigarette Years Smoked: stopped 1989 e-Cigarette/Vaping Use: Never Used Second Hand Smoke Exposure: Yes service: No Current occupational status: employed Cognitive needs: No Hearing needs: No Vision needs: No Review of Systems Const Denies chills, Denies daytime sleepiness, Denies fatigue, Denies fever(s), Denies frequent falls, Denies night sweats, Denies snoring, Denies weakness, Denies weight gain and Denies weight loss Eyes Denies loss of vision ENT Denies dizziness and Denies hearing loss Card Denies chest pain, Denies chest pain with activity, Denies syncope, Denies rapid heart rate, Denies edema, Denies claudication, Denies leg edema, Denies lightheadedness, Denies palpitations, Denies dyspnea, Denies dyspnea on exertion and Denies orthopnea Resp Denies cough, Denies excessive phlegm production, Denies dyspnea, Denies dyspnea on exertion, Denies snoring and Denies wheezing GI Denies abdominal pain, Denies hematochezia, Denies change in bowel habits, Denies change in stool character, Denies heartburn, Denies nausea and Denies vomiting Denies hematuria, Denies dysuria and Denies urinary frequency Musc Denies arthralgias, Denies muscle weakness, Denies numbness and Denies tingling Skin/Breast Denies nail changes and Denies rash Neuro Denies Abnormal speech present, Denies dizziness, Denies syncope, Denies frequent falls, Denies loss of vision, Denies memory loss, Denies numbness, Denies tingling and Denies weakness Psych Denies depression and Denies memory loss Endo Denies fatigue and Denies palpitations Aller/Immun Denies wheezing Physical Exam Vital Signs: Last Vital Signs Pulse 71 01/10/23 14:32 BP 102/64 01/10/23 14:32 BMI result Body Mass Index 26.2 GENERAL APPEARANCE: in no acute distress, pleasant. NECK: no carotid bruit, no jugular venous distention. SKIN: no suspicious lesions, warm and dry. HEART: no murmurs, regular rate and rhythm. LUNGS: clear to auscultation bilaterally. ABDOMEN: soft, nontender. EXTREMITIES: no edema. PERIPHERAL PULSES: equal. NEUROLOGIC: No gross deficits, AAO X 3 Neuro Speech: No Abnormal speech present Office Procedures EKG Details: Sinus rhythm 73 beats per minute, normal axis, normal ECG, QTC 416 milliseconds. 72078-[id number], Complete Results Reviewed Results Reviewed: [address] [address] Holter Monitor Report Signed Patient: Mehrdad Bella MR#: [id number] : 1965 Acct:[id number] Age/Sex: 56 / M ADM Date: 08/04/22 Loc: .[facility] Attending Dr: Maisha NICHOLE Ordering Physician: Maisha Keith Date of Service: 08/04/22 Procedure(s): ECG 3 day holter monitor Accession Number(s): cc: SagarMaisha NICHOLE~ Total monitoring time 3 days. Underlying rhythm is sinus. Average ventricular rate 77/Min. Range 47 to 143/Min. Rare supraventricular and ventricular ectopy. No sustained arrhythmias. No significant pauses or AV blocks. No patient markers or events in diary. Dictated By: Rosendo Taylor MD Signed By: <Electronically signed by Rosendo Taylor MD> 10/26/22 1150 Assessment & Plan Assessment & Plan (1) Palpitations: Code(s): R00.2 - Palpitations Plan 57-year-old gentleman here for palpitations. He had a Holter monitor which was normal. He has rare palpitations currently. I have advised him to cut back on chewing tobacco as nicotine is a stimulant. He will hydrate himself better. We discussed about options to monitor and if he developed any increased in frequency of symptoms then we will consider repeating a monitor on him. I have also given him the options to by monitoring watch or Kardia device. So far he has been doing well and does not have any frequent symptoms. We will monitor him for now. He will see us back in 1 year. He will call us in case any changes symptoms happen. Thank you for allowing me to participate in the care of your patient. Please feel free to contact me if you have any questions. Coding Level of Care Code New Pt Level 3 (25502) Diagnoses Palpitations R00.2 CPT Codes EKG - CPT: 59918-Aacqdwlevzlzewoiw, Complete ([id number])
[2023-01-10 14:32] VITALS: BP 102/64; PULSE 71; BMI 26.2
== END 2023-01-10 15:01 | disposition home or self-care (01) ==
PROVIDERS: PCP Internal Medicine; Visit Provider Internal Medicine Cardiovascular Disease
DX: R00.2 Palpitations (principal)
CPT/HCPCS: 93010; 99203

== ENCOUNTER → 2023-01-10 14:27 | Outpatient (BNVA) | payer OTHER, SELFPAY | PROVIDERS: PCP Internal Medicine; Visit Provider Internal Medicine Cardiovascular Disease | DX: R00.2 Palpitations (principal) | CPT/HCPCS: 93005 ==

== ENCOUNTER 2023-03-30 08:58 | Outpatient (AMB) | payer OTHER, SELFPAY ==
[2023-03-30 09:00] VITALS: BP 104/70; PULSE 74; O2SAT 98; BMI 26.1
--- NOTE | 2023-03-30 09:00 | MHC.PC.OV ---
Vital Signs 03/30/23 09:00 Height 5 ft 11 in Weight 187 lb BMI 26.1 BP 104/70 Blood Pressure Location Lt brachial Position Sitting Pulse 74 Pulse Source Pulse Oximeter Pulse Oximetry (%) 98 Oxygen Delivery Method Room Air Intake Visit Reasons: Annual exam Calculation Reviewer: Not Required per policy Accompanied by: Self / Same As Patient Allergies penicillin G Allergy (Unknown, Verified 01/10/23 14:33) rash Penicillins [PENICILLINS] Allergy (Unknown, Verified 01/10/23 14:33) HIVES Tobacco use date assessed: 03/30/23 Dental Screening Dental Screen Date: 03/30/23 Did you have a dental visit in the last 12 months?: Yes Did you have a dental problem in the last 6 months where you did not have access to dental care?: No Was dental information given to patient?: Patient has dentist HPI Annual exam HPI Details 57-year-old male with GERD hypersomnia thyroid nodule status post lobectomy coming in for physical exam last seen in September 2022. Colonoscopy is up-to-date 04/07/2009 years. Patient has been complaining about palpitations and was sent to Cardiology. Patient has been advised to cut back on chewing tobacco conservative management. Patient also has been referred to Urology for the rising PSA annual monitoring with PSA testing. Patient also had a sleep study done October 2022 showing no evidence of sleep apnea [facility] Medical History Joint pain Simple laceration of nose Nose abrasion Shoulder pain, bilateral Surgical History Hx of biopsy S/P fine needle aspiration Family History Father Myocardial infarct Prostate cancer Mother Lung cancer Brother Alcohol abuse Sister Alcohol abuse Social History (Updated 03/30/23 @ 09:20 by Ángel Lira MD) Housing: House Alcohol intake: current Alcohol intake frequency: holidays/special occasions only Comment: beer q 2 days Patient Tobacco Use Status: Former Tobacco user Tobacco use type: Cigarette Years Smoked: stopped 1989 e-Cigarette/Vaping Use: Never Used Second Hand Smoke Exposure: Yes service: No Current occupational status: employed Cognitive needs: No Hearing needs: No Vision needs: No Questionnaire PHQ-9 Over the last 2 weeks, how often have you been bothered by any of the following problems? 1. Little interest or pleasure in doing things: not at all 2. Feeling down, depressed, or hopeless: not at all 3. Trouble falling or staying asleep, or sleeping too much: not at all 4. Feeling tired or having little energy: not at all 5. Poor appetite or overeating: not at all 6. Feeling bad about yourself - or that you are a failure or have let yourself or your family down: not at all 7. Trouble concentrating on things, such as reading the newspaper or watching television: not at all 8. Moving or speaking so slowly that other people could have noticed. Or the opposite - being so fidgety or restless that you have been moving around a lot more than usual: not at all 9. Thoughts that you would be better off or of hurting yourself in some way: not at all Total score: 0 Depression Screening Interpretation: Negative Depression Screening Done: Yes 70345 - PHQ-9 Billing: Yes Source: Developed by Drs. Alexsander Alanis, Charity Momin, Abiodun Mcdonald and colleagues, with an educational loan from [employer] Thrive Questionnaire Date Thrive assessed: 03/30/23 I am a: Patient What is your living situation today?: I have a steady place to live Within the past 12 months, did the food you bought not last and you didn't have the money to get more?: Never true Within the past 12 months, did you worry whether your food would run out before you got money to buy more?: Never true Do you have trouble paying for medicines?: No Do you have trouble getting transportation to medical appointments?: No Do you have trouble paying your heating and electricity bill?: No Do you have trouble taking care of your child, family member or friend?: No Do you have trouble with day-to-day activities such as bathing, preparing meals, shopping, managing finances, etc.?: No Are you currently unemployed and looking for a job?: No Are you interested in more education?: No Please select the resources that you would like help with: None AUDIT C Alcohol Use Questionnaire (AUDIT-C) 1. How often do you have a drink containing alcohol?: Never 3. How often do you have six or more drinks on one occasion?: Never Total Score: 0 Score Reviewed/Action Taken: No VIVEK-7 AMB Questionnaire VIVEK-7 Date VIVEK - 7 assessed: 03/30/23 Feeling nervous, anxious, or on edge: 0 = Not at all Not being able to stop or control worryin = Not at all Worrying too much about different things: 0 = Not at all Trouble relaxin = Not at all Being so restless that it is hard to sit still: 0 = Not at all Becoming easily annoyed or irritable: 0 = Not at all Feeling afraid as if something awful might happen: 0 = Not at all Total VIVEK-7 score (0-4 normal; 5-9 mild; 10-14 moderate; 15-21 severe): 0 Source: Developed by Drs. Alexsander Alanis, Charity Momin, Abiodun Mcdonald and colleagues, with an educational loan from [employer] Review of Systems Const Denies poor appetite and Denies weakness Eyes Denies no additional complaints ENT Reports Normal hearing present, Denies dizziness, Denies nasal congestion, Denies tinnitus and Denies sore throat Card Denies chest pain, Denies syncope, Denies rapid heart rate and Denies dyspnea Resp Denies cough and Denies dyspnea GI Denies change in stool character, Reports constipation, Denies diarrhea, Denies nausea and Denies vomiting Denies dysuria and Denies urinary frequency Neuro Reports Normal hearing present, Denies confusion, Denies dizziness, Denies syncope and Denies weakness Psych Denies confusion Physical exam (Primary Care) Vital Signs: Last Vital Signs Pulse 74 03/30/23 09:00 BP 104/70 03/30/23 09:00 Pulse Ox 98 03/30/23 09:00 Oxygen Delivery Method Room Air 03/30/23 09:00 BMI result Body Mass Index 26.1 Tobacco/Smoking Status: Tobacco use Status Tobacco use date assessed 03/30/23 03/30/23 09:03 Patient Tobacco Use Status Former Tobacco user 03/30/23 09:03 Tobacco use type Cigarette 03/30/23 09:03 e-Cigarette/Vaping Use Never Used 03/30/23 09:03 PHQ-9: PHQ-9 Score PHQ-9: Total score 0 03/30/23 09:03 Depression Screening Interpretation: Negative Thrive Assessment: Date of Thrive Assessment Date Thrive assessed 03/30/23 03/30/23 09:03 Const General: No confusion Orientation/consciousness: No confusion HENMT Head: Yes normocephalic Ears: external ears normal and TM's normal bilaterally Face and sinus: Yes normal facial exam Mouth: moist mucous membranes Throat: Yes tonsils normal Eyes Conjunctivae: conjunctivae normal Pupils: Equal, round and reactive pupils present and Pupil accommodation reflex normal Direct Ophthalmoscopy: normal light reflex Neck Neck: No lymphadenopathy Thyroid: Thyroid normal Chest Chest palpation & inspection: normal inspection of the chest Resp Effort & Inspection: normal respiratory effort and no audible wheezes Auscultation: clear to auscultation bilaterally, no crackles, no wheezes and lung sounds not diminished Cardio Rate: regular rate Rhythm: regular rhythm Peripheral pulses: radial pulses present and dorsalis pedis present GI Palpation (GI): no masses Auscultation: normal bowel sounds and normoactive bowel sounds Rectal Exam - Male: Yes deferred Skin General skin exam: no rashes or lesions noted Rashes: no rashes Neuro General: No confusion Cranial nerves: Yes Equal, round and reactive pupils present and Yes Normal hearing present Cognition (Neuro): normal cognition Gait exam (Neuro): Normal gait present Motor exam (neuro): 5/5 motor strength present throughout Deep tendon reflexes (DTR's): Right brachioradialis reflex intensity grade: 2+, Left brachioradialis reflex intensity grade: 2+, Right patellar reflex intensity grade: 2+ and Left patellar reflex intensity grade: 2+ Extrem General: No edema Assessment and Plan Assessment & Plan (1) Annual physical exam: Code(s): Z00.00 - Encounter for general adult medical examination without abnormal findings (2) Palpitations: Code(s): R00.2 - Palpitations Plan: Patient has met with cardiology workup negative continuing surveillance (3) BPH (benign prostatic hyperplasia): Code(s): N40.0 - Benign prostatic hyperplasia without lower urinary tract symptoms Plan: Patient has seen urology and continuing to monitor PSA (4) Hypersomnia: Comment: Sleep study October 2022 negative Code(s): G47.10 - Hypersomnia, unspecified Plan: Sleep study done negative sleep apnea (5) Hypercholesterolemia: Code(s): E78.00 - Pure hypercholesterolemia, unspecified Plan: Avoid fried foods, chicken skin, eggs, butter margarine, pastries and meat. Be it pork or beef they have a lot of cholesterol LDL goal of less than 130 and triglyceride of less than 150. March 2022 last blood work (6) Impaired glucose tolerance: Code(s): R73.02 - Impaired glucose tolerance (oral) Plan: Decrease the amount of carbohydrate intake, pasta, bread, rice and potatoes are all sugar and that is aside from all the sweet stuff, remember that fruits are good but they are Sweet also. (7) Hearing deficit: Code(s): H91.90 - Unspecified hearing loss, unspecified ear Orders: Orders Free T4 (Free Thyroxine) Today E78.00 - Pure hypercholesterolemia, unspecified Vitamin B12 and Folate Today E78.00 - Pure hypercholesterolemia, unspecified Prostate Specific Antigen Scr Today E78.00 - Pure hypercholesterolemia, unspecified Complete Blood Count Auto Diff Today E78.00 - Pure hypercholesterolemia, unspecified Comprehensive Met. Panel Today E78.00 - Pure hypercholesterolemia, unspecified Thyroid Stimulating Hormone Today E78.00 - Pure hypercholesterolemia, unspecified Lipid Panel Today E78.00 - Pure hypercholesterolemia, unspecified Hemoglobin A1c Today E78.00 - Pure hypercholesterolemia, unspecified Referrals Speech and Hearing Referral H91.90 - Unspecified hearing loss, unspecified ear Coding Level of Care Code Est Pt Prev Care 40-64y(50900) Diagnoses Annual physical exam Z00.00 Palpitations R00.2 BPH (benign prostatic hyperplasia) N40.0 Hypersomnia G47.10 Hypercholesterolemia E78.00 Impaired glucose tolerance R73.02 Hearing deficit H91.90
== END 2023-03-30 10:32 | disposition home or self-care (01) ==
PROVIDERS: Visit Provider Internal Medicine
DX: Z00.00 Encounter for general adult medical examination without abnormal findings (principal); R00.2 Palpitations; N40.0 Benign prostatic hyperplasia without lower urinary tract symptoms; G47.10 Hypersomnia, unspecified; E78.00 Pure hypercholesterolemia, unspecified; R73.02 Impaired glucose tolerance (oral); H91.90 Unspecified hearing loss, unspecified ear
CPT/HCPCS: 99396

== ENCOUNTER 2023-12-10 15:14 | Outpatient (AMB) | payer OTHER, SELFPAY ==
--- NOTE | 2023-12-10 15:19 | A.OFFPC_ITS ---
Vital Signs 12/10/23 15:21 Height 5 ft 11 in Weight 179 lb 4 oz BMI 25.0 BP 90/60 Blood Pressure Location Lt brachial Position Sitting Pulse 65 Pulse Source Pulse Oximeter Pulse Oximetry (%) 97 Oxygen Delivery Method Room Air Intake Visit Reasons: LeftArmRotatorCuffPain Intake Note: Patient is here to follow up on both shoulder pain ongoing for 3 months. Requesting for letter for bow hunting sport. OTC not helping. Senior Marketing Specialist Required: No Conveyor Mechanic: Not Required per policy Accompanied by: Self / Same As Patient Allergies penicillin G Allergy (Unknown, Verified 12/11/23 19:52) rash Penicillins [PENICILLINS] Allergy (Unknown, Verified 12/11/23 19:52) HIVES Medication List - Last Reconciled 12/11/23 by Celio Biswas MD cyclobenzaprine 10 mg PO BEDTIME meloxicam 15 mg PO DAILY Tobacco use date assessed: 12/10/23 Dental Screening Dental Screen Date: 03/30/23 HPI LeftArmRotatorCuffPain HPI Details 58-year-old male presents to the office for a sick visit. Patient is complaining of bilateral shoulder pain with left side more than the right side. 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 Sharp pain over the left shoulder. [facility] Medical History Joint pain Simple laceration of nose Nose abrasion Shoulder pain, bilateral Surgical History Hx of biopsy S/P fine needle aspiration Family History Father Myocardial infarct Prostate cancer Mother Lung cancer Brother Alcohol abuse Sister Alcohol abuse Social History Housing: House Alcohol intake: current Alcohol intake frequency: holidays/special occasions only Comment: beer q 2 days Patient Tobacco Use Status: Former Tobacco user Tobacco use type: Cigarette Years Smoked: stopped 1989 e-Cigarette/Vaping Use: Never Used Second Hand Smoke Exposure: Yes service: No Current occupational status: employed Cognitive needs: No Hearing needs: No Vision needs: No Questionnaire Thrive Questionnaire Date Thrive assessed: 03/30/23 Are you currently unemployed and looking for a job?: No VIVEK-7 AMB Questionnaire VIVEK-7 Date VIVEK - 7 assessed: 03/30/23 Source: Developed by Drs. Alexsander Alanis, Charity Momin, Abiodun Mcdonald and colleagues, with an educational loan from [employer]. Physical exam (Primary Care) Vital Signs: Last Vital Signs Pulse 65 12/10/23 15:21 BP 90/60 12/10/23 15:21 Pulse Ox 97 12/10/23 15:21 Oxygen Delivery Method Room Air 12/10/23 15:21 BMI result Body Mass Index 25.0 Tobacco/Smoking Status: Tobacco use Status Tobacco use date assessed 12/10/23 12/10/23 15:26 Patient Tobacco Use Status Former Tobacco user 12/10/23 15:26 Tobacco use type Cigarette 12/10/23 15:26 e-Cigarette/Vaping Use Never Used 12/10/23 15:26 Thrive Assessment: Date of Thrive Assessment Date Thrive assessed 03/30/23 12/10/23 15:26 Extrem Other: Shoulder: Right and left: No visible bruising or swelling. Full range of motion with discomfort. Assessment and Plan Assessment & Plan (1) Shoulder sprain: Code(s): S43.409A - Unspecified sprain of unspecified shoulder joint, initial encounter Plan: X-rays have been ordered. Physical therapy has been ordered. Anti-inflammatory and muscle relaxants have been prescribed. Patient was advised to rest both the shoulders till the inflammation subsides. Orders: Orders XR shoulder RT min 2V 12/10/23 S43.409A - Unspecified sprain of unspecified shoulder joint, initial encounter PT Evaluation and Treatment 12/10/23 S43.409A - Unspecified sprain of unspecified shoulder joint, initial encounter XR shoulder LT min 2V 12/10/23 S43.409A - Unspecified sprain of unspecified shoulder joint, initial encounter Medications: New meloxicam 15 mg PO DAILY 14 tabs 0RF cyclobenzaprine 10 mg PO BEDTIME 14 tabs 0RF Coding Level of Care Code Est Pt Level 3 (52410) Complex EM visit Add On G2211 Diagnoses Shoulder sprain S43.409A
[2023-12-10 15:21] VITALS: BP 90/60; PULSE 65; O2SAT 97; BMI 25.0
== END 2023-12-10 16:10 | disposition home or self-care (01) ==
PROVIDERS: PCP Internal Medicine; Visit Provider Internal Medicine
DX: S43.401A Unspecified sprain of right shoulder joint, initial encounter (principal); S43.402A Unspecified sprain of left shoulder joint, initial encounter

== ENCOUNTER → 2023-12-10 15:14 | Outpatient (BNVA) | payer OTHER, SELFPAY | PROVIDERS: PCP Internal Medicine; Visit Provider Internal Medicine | DX: S43.409A Unspecified sprain of unspecified shoulder joint, initial encounter (principal) ==

== ENCOUNTER 2023-12-13 11:13 | Outpatient (REF) | payer OTHER, SELFPAY ==
--- NOTE | ~2023-12-13 | XR_ITS ---
EXAMINATION: XR SHOULDER, RIGHT CLINICAL INFORMATION: S43.409A - Unspecified sprain of unspecified shoulder joint, initial enc... COMPARISON: None available. TECHNIQUE: AP external rotation, Grashey, scapular Y, and axillary views of the right shoulder. FINDINGS: Normal bone mineralization. No fracture, dislocation, or suspicious bone lesion. Normal alignment of the shoulder joint. Glenohumeral joint appears normal. AC joint demonstrates minimal spurring. Subacromial space is preserved without outlet stenosis. Minimally undersurface curved lateral acromion. No spurs. Remainder of the bony and soft tissues appear normal. XR/XR shoulder RT min 2V IMPRESSION: 1. No acute findings right shoulder joint. 2. Minimal degenerative change in the AC joint. Electronically signed by: Giovanni Melendrez MD 02/19/2024 02:41 PM JAVIER
--- NOTE | ~2023-12-13 | XR_ITS ---
EXAMINATION: XR SHOULDER, LEFT CLINICAL INFORMATION: S43.409A - Unspecified sprain of unspecified shoulder joint, initial enc... COMPARISON: None available. TECHNIQUE: AP external rotation, Grashey, scapular Y, and axillary views of the left shoulder. FINDINGS: Normal bone mineralization. No fracture, dislocation, or suspicious bone lesion. Normal alignment of the shoulder joint. Glenohumeral joint appears normal. AC joint appears normal. Subacromial space is preserved without outlet stenosis. Minimally undersurface curved lateral acromion. No spurs. Remainder of the bony and soft tissues appear normal. XR/XR shoulder LT min 2V IMPRESSION: 1. Normal left shoulder joint. No acute findings. Electronically signed by: Giovanni Melendrez MD 02/19/2024 02:43 PM J[facility]IER LEWIS
[2023-12-13 13:12] LABS: PSA,Total (Free>4and<10) 0.42 ng/mL (0.00-4.00)
== END 2023-12-13 11:14 | disposition home or self-care (01) ==
LOC: HO.XRAY 11:13
PROVIDERS: Absent Provider Urology; PCP Internal Medicine; Visit Provider Internal Medicine
DX: S43.409A Unspecified sprain of unspecified shoulder joint, initial encounter (principal); Z12.5 Encounter for screening for malignant neoplasm of prostate
CPT/HCPCS: 36415; 73030; 84153

== ENCOUNTER → 2023-12-13 11:27 | Outpatient (BNV) | payer OTHER, SELFPAY | PROVIDERS: Absent Provider Urology; PCP Internal Medicine; Visit Provider Radiology Diagnostic Radiology | DX: S43.409A Unspecified sprain of unspecified shoulder joint, initial encounter (principal) | CPT/HCPCS: 73030 ==

== ENCOUNTER 2023-12-19 10:58 | Outpatient (AMB) | payer OTHER, SELFPAY ==
--- NOTE | 2023-12-19 11:02 | A.OFFVIS_ITS ---
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 Asymptomatic. FU PSA - Mehrdad is a 58 year old male followed for BPH and microscopic hematuria, FH -father had prostate cancer. He denies LUTS of dysuria or urinary frequency. PSA 12/13/23- 0.42 ng/mL. Cont to monitor. FU one year. renal US and PSA prior. Review of chart: 07/20/22-- Mehrdad is a 56-year-old male who is here for tele-health visit for microscopic hematuria and discussion of CT scan results. He Denies recurrence of dysuria and gross hematuria since last visit LV?01/13/22-- he was initially seen by nurse practitioner Soo and was sent for renal ultrasound. He denies irritative voiding symptoms. He has a family history of prostate cancer, father. He denies gross hematuria. 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 He is not on daily prescribed medication. I have reviewed the renal ultrasound results with the patient kidneys are within normal limits. Urinalysis today persistent microscopic hematuria. CTAP results reviewed?06/22/22-- Essentially within normal limits with small cyst midpole right kidney. PSA results reviewed?01/13/22-0.29. [facility] Medical History Joint pain Simple laceration of nose Nose abrasion Shoulder pain, bilateral Surgical History Hx of biopsy S/P fine needle aspiration Family History Father Myocardial infarct Prostate cancer Mother Lung cancer Brother Alcohol abuse Sister Alcohol abuse Social History Housing: House Alcohol intake: current Alcohol intake frequency: holidays/special occasions only Comment: beer q 2 days Patient Tobacco Use Status: Former Tobacco user Tobacco use type: Cigarette Years Smoked: stopped 1989 e-Cigarette/Vaping Use: Never Used Second Hand Smoke Exposure: Yes service: No Current occupational status: employed Cognitive needs: No Hearing needs: No Vision needs: No Review of Systems Const All systems reviewed & are unremarkable except as noted in HPI and below Reports no additional complaints Eyes Reports no additional complaints ENT Reports no additional complaints Card Reports no additional complaints Resp Reports no additional complaints GI Reports no additional complaints Reports as per HPI Musc Reports no additional complaints Skin/Breast Reports system reviewed and no additional complaints, except as documented Neuro Reports no additional complaints Psych Reports no additional complaints Endo Reports no additional complaints Tanner/Lymph Reports no additional complaints Aller/Immun Reports no additional complaints Results AMB Urinalysis, Automated UA Leukoctes 0 Julianne/uL Last Edit by Ignacia Brightidor on 12/19/23 11:37 UA Nitrite Negative Last Edit by Ignacia Jw on 12/19/23 11:37 UA Urobilinogen 0.2 mg/dL Last Edit by Ignacia Jw on 12/19/23 11:37 UA Protein 0 mg/dL Last Edit by Ignacia Jw on 12/19/23 11:37 UA pH 6.0 Last Edit by Ignacia Jw on 12/19/23 11:37 UA Blood 10 Anthony/uL Last Edit by Ignacia Jw on 12/19/23 11:37 UA Specific Ralph 1.010 Last Edit by Ignacia Jw on 12/19/23 11:37 UA Ketone Negative Last Edit by Ignacia Jw on 12/19/23 11:37 UA Bilirubin 0 mg/dL Last Edit by Ignacia Jw on 12/19/23 11:37 UA Glucose 0 mg/dL Last Edit by Ignacia Jw on 12/19/23 11:37 Results Reviewed Results Reviewed: Laboratory Last Values Urine pH (Auto) 6.0 12/19/23 11:35 Specific Ralph (Auto) 1.010 12/19/23 11:35 Urine Protein (Auto) 0 mg/dL 12/19/23 11:35 Glucose (UA)(Auto) 0 mg/dL 12/19/23 11:35 Urine Ketones (Auto) Negative 12/19/23 11:35 Urine Blood (Auto) 10 Anthony/uL 12/19/23 11:35 Urine Nitrite (Auto) Negative 12/19/23 11:35 Urine Bilirubin (Auto) 0 mg/dL 12/19/23 11:35 Urine Urobilinogen (Auto) 0.2 mg/dL 12/19/23 11:35 Leukocyte Esterase (Auto) 0 Julianne/uL 12/19/23 11:35 Assessment & Plan Assessment & Plan (1) Microscopic hematuria: Code(s): R31.29 - Other microscopic hematuria Category: Medical (2) BPH (benign prostatic hyperplasia): Code(s): N40.0 - Benign prostatic hyperplasia without lower urinary tract symptoms Category: Medical (3) Screening PSA (prostate specific antigen): Code(s): Z12.5 - Encounter for screening for malignant neoplasm of prostate Category: Medical Plan FU one year. renal US and PSA prior Orders: Orders AMB Urinalysis Automated 12/19/23 Z13.9 - Encounter for screening, unspecified US renal BI 10 Months R31.29 - Other microscopic hematuria Urine Cytology 12/19/23 R31.29 - Other microscopic hematuria PSA,Total (Free>4and<10) 11 Months N40.0 - Benign prostatic hyperplasia without lower urinary tract symptoms, Z12.5 - Encounter for screening for malignant neoplasm of prostate Patient Instructions: The patient had an opportunity to ask questions regarding treatment plan. The patient expressed understanding and agreement with the above treatment plan. The patient is aware they should contact our office by phone for worsening of their current condition or the appearance of new symptoms. Compliance is encouraged with any medications and followup testing that is ordered. It is a privilege to be allowed the opportunity to participate in the urologic care of your patient. If you have any questions or concerns regarding treatment for the above conditions please do not hesitate to contact me. The office telephone contact is [phone]. This note is constructed in part using voice recognition software. While every effort has been made to ensure accuracy microsoft access developer errors may have been included. Yours sincerely, Bertrand Floyd MD Coding Level of Care Code Est Pt Level 4 (54619) Diagnoses Microscopic hematuria R31.29 BPH (benign prostatic hyperplasia) N40.0 Screening PSA (prostate specific antigen) Z12.5
== END 2023-12-19 12:20 | disposition home or self-care (01) ==
PROVIDERS: PCP Internal Medicine; Visit Provider Urology
DX: R31.29 Other microscopic hematuria (principal); N40.0 Benign prostatic hyperplasia without lower urinary tract symptoms; Z12.5 Encounter for screening for malignant neoplasm of prostate
CPT/HCPCS: 99214

== ENCOUNTER 2023-12-19 10:58 | Outpatient (REF) | payer OTHER, SELFPAY ==
[2023-12-19 17:26] LABS: Urine Cytology See Pathology rpt
== END 2023-12-19 10:59 | disposition home or self-care (01) ==
LOC: HO.LNP 10:58
PROVIDERS: PCP Internal Medicine; Visit Provider Urology
DX: R31.29 Other microscopic hematuria (principal)
CPT/HCPCS: 81003; 88112

== ENCOUNTER 2024-04-03 10:20 | Outpatient (AMB) | payer OTHER, SELFPAY ==
[2024-04-03 10:34] VITALS: BP 122/78; PULSE 64; O2SAT 98; BMI 25.9
--- NOTE | 2024-04-03 10:34 | MHC.PC.OV ---
Vital Signs 04/03/24 10:34 Height 5 ft 11 in Weight 186 lb BMI 25.9 BP 122/78 Blood Pressure Location Lt brachial Position Sitting Pulse 64 Pulse Source Pulse Oximeter Pulse Oximetry (%) 98 Oxygen Delivery Method Room Air Intake Visit Reasons: Annual Exam Intake Note: patient had a fall on sunday. Allergies penicillin G Allergy (Unknown, Verified 04/03/24 10:34) rash Penicillins [PENICILLINS] Allergy (Unknown, Verified 04/03/24 10:34) HIVES Medication List - Last Reconciled 04/03/24 by Ángel Lira MD Tobacco use date assessed: 04/03/24 Dental Screening Dental Screen Date: 04/03/24 Did you have a dental visit in the last 12 months?: Yes Did you have a dental problem in the last 6 months where you did not have access to dental care?: No Was dental information given to patient?: Patient has dentist HPI Annual Exam HPI Details 58-year-old male with GERD impaired glucose tolerance hypercholesterolemia with hematuria and BPH last seen last year. Patient follows up with urology on a yearly basis and on surveillance for prostate number and was advised to get an ultrasound of the kidneys this year. Meanwhile patient is here for physical exam. Described fall in the snow/eyes last March 30 while carrying certain things and fell on his back but the pain is on his left chest. Patient persists to have some pain but is getting better. Takes Motrin 400 mg twice a day as needed. Knows to take with food. Otherwise no other complaints. [facility] Medical History Joint pain Simple laceration of nose Nose abrasion Shoulder pain, bilateral Surgical History Hx of biopsy S/P fine needle aspiration Family History Father Myocardial infarct Prostate cancer Mother Lung cancer Brother Alcohol abuse Sister Alcohol abuse Social History (Updated 04/03/24 @ 10:56 by Ángel Lira MD) Housing: House Alcohol intake: current Alcohol intake frequency: holidays/special occasions only Comment: beer q 2 days , once a month beer Patient Tobacco Use Status: Former Tobacco user Tobacco use type: Cigarette Years Smoked: stopped 1989 e-Cigarette/Vaping Use: Never Used Second Hand Smoke Exposure: Yes service: No Current occupational status: employed Cognitive needs: No Hearing needs: No Vision needs: No Questionnaire PHQ-9 Over the last 2 weeks, how often have you been bothered by any of the following problems? 1. Little interest or pleasure in doing things: not at all 2. Feeling down, depressed, or hopeless: not at all 3. Trouble falling or staying asleep, or sleeping too much: not at all 4. Feeling tired or having little energy: not at all 5. Poor appetite or overeating: not at all 6. Feeling bad about yourself - or that you are a failure or have let yourself or your family down: not at all 7. Trouble concentrating on things, such as reading the newspaper or watching television: not at all 8. Moving or speaking so slowly that other people could have noticed. Or the opposite - being so fidgety or restless that you have been moving around a lot more than usual: not at all 9. Thoughts that you would be better off or of hurting yourself in some way: not at all Total score: 0 Source: Developed by Drs. Alexsander Alanis, Charity Momin, Abiodun Mcdonald and colleagues, with an educational loan from [employer]. Thrive Questionnaire Date Thrive assessed: 04/03/24 I am a: Patient What is your living situation today?: I have a steady place to live Within the past 12 months, did the food you bought not last and you didn't have the money to get more?: Never true Within the past 12 months, did you worry whether your food would run out before you got money to buy more?: Never true Do you have trouble paying for medicines?: No Do you have trouble getting transportation to medical appointments?: No Do you have trouble paying your heating and electricity bill?: No Do you have trouble taking care of your child, family member or friend?: No Do you have trouble with day-to-day activities such as bathing, preparing meals, shopping, managing finances, etc.?: No Are you currently unemployed and looking for a job?: Yes Are you interested in more education?: No Please select the resources that you would like help with: None Currently or been in a relationship where the following occur: No concerns reported THRIVE Score: 0 AUDIT C Alcohol Use Questionnaire (AUDIT-C) 1. How often do you have a drink containing alcohol?: Monthly or less 2. How many drinks containing alcohol do you have on a typical day when you are drinking?: 1 or 2 3. How often do you have six or more drinks on one occasion?: Never Total Score: 1 VIVEK-7 AMB Questionnaire VIVEK-7 Date VIVEK - 7 assessed: 04/03/24 Feeling nervous, anxious, or on edge: 0 = Not at all Not being able to stop or control worryin = Not at all Worrying too much about different things: 0 = Not at all Trouble relaxin = Not at all Being so restless that it is hard to sit still: 0 = Not at all Becoming easily annoyed or irritable: 0 = Not at all Feeling afraid as if something awful might happen: 0 = Not at all Total VIVEK-7 score (0-4 normal; 5-9 mild; 10-14 moderate; 15-21 severe): 0 Source: Developed by Drs. Alexsander Alanis, Charity Momin, Abiodun Mcdonald and colleagues, with an educational loan from [employer]. Review of Systems Const Denies poor appetite and Denies weakness Eyes Denies no additional complaints ENT Reports Normal hearing present, Denies dizziness, Denies nasal congestion, Denies tinnitus and Denies sore throat Card Denies chest pain, Denies syncope, Denies rapid heart rate and Denies dyspnea Resp Denies cough and Denies dyspnea GI Denies change in stool character, Reports constipation, Denies diarrhea, Denies nausea and Denies vomiting Denies dysuria and Denies urinary frequency Neuro Reports Normal hearing present, Denies confusion, Denies dizziness, Denies syncope and Denies weakness Psych Denies confusion Physical exam (Primary Care) Vital Signs: Last Vital Signs Pulse 64 04/03/24 10:34 BP 122/78 04/03/24 10:34 Pulse Ox 98 04/03/24 10:34 Oxygen Delivery Method Room Air 04/03/24 10:34 BMI result Body Mass Index 25.9 Tobacco/Smoking Status: Tobacco use Status Tobacco use date assessed 04/03/24 04/03/24 10:36 Patient Tobacco Use Status Former Tobacco user 04/03/24 10:56 Tobacco use type Cigarette 04/03/24 10:56 e-Cigarette/Vaping Use Never Used 04/03/24 10:56 PHQ-9: PHQ-9 Score PHQ-9: Total score 0 04/03/24 10:43 Thrive Assessment: Date of Thrive Assessment Date Thrive assessed 04/03/24 04/03/24 10:36 Currently or been in a relationship where the following occur: No concerns reported Const General: No confusion Orientation/consciousness: No confusion HENMT Head: Yes normocephalic Ears: external ears normal and TM's normal bilaterally Face and sinus: Yes normal facial exam Mouth: moist mucous membranes Throat: Yes tonsils normal Eyes Conjunctivae: conjunctivae normal Pupils: Equal, round and reactive pupils present and Pupil accommodation reflex normal Direct Ophthalmoscopy: normal light reflex Neck Neck: No lymphadenopathy Thyroid: Thyroid normal Chest Chest palpation & inspection: normal inspection of the chest Resp Effort & Inspection: normal respiratory effort and no audible wheezes Auscultation: clear to auscultation bilaterally, no crackles, no wheezes and lung sounds not diminished Cardio Rate: regular rate Rhythm: regular rhythm Peripheral pulses: radial pulses present and dorsalis pedis present GI Other: Declined rectal exam Palpation (GI): no masses Auscultation: normal bowel sounds and normoactive bowel sounds Rectal Exam - Male: Yes deferred Abdomen image: 1. Tender on the axillary line left 7th rib no bruises no swelling noted Male General Exam: Yes normal external exam Skin General skin exam: no rashes or lesions noted Rashes: no rashes Neuro General: No confusion Cranial nerves: Yes Equal, round and reactive pupils present and Yes Normal hearing present Cognition (Neuro): normal cognition Gait exam (Neuro): Normal gait present Motor exam (neuro): 5/5 motor strength present throughout Deep tendon reflexes (DTR's): Right brachioradialis reflex intensity grade: 2+, Left brachioradialis reflex intensity grade: 2+, Right patellar reflex intensity grade: 2+ and Left patellar reflex intensity grade: 2+ Extrem General: No edema Coding Level of Care Code Est Pt Prev Care 40-64y(87242) Diagnoses Annual physical exam Z00.00 Gastroesophageal reflux disease without esophagitis K21.9 Esophagitis presence: without esophagitis Hypercholesterolemia E78.00 Benign prostatic hyperplasia without lower urinary tract symptoms N40.0 Lower urinary tract symptom presence: symptoms absent Left-sided chest pain R07.9 Fall, subsequent encounter W19.XXXD Encounter type: subsequent encounter Assessment & Plan Assessment & Plan (1) Annual physical exam: Code(s): Z00.00 - Encounter for general adult medical examination without abnormal findings Category: Medical Plan: Patient is advised to eat healthy, keep well hydrated, keep active and have adequate sleep. (2) GERD (gastroesophageal reflux disease): Code(s): K21.9 - Gastro-esophageal reflux disease without esophagitis Category: Medical Qualifiers: Esophagitis presence: without esophagitis Qualified Code(s): K21.9 - Gastro-esophageal reflux disease without esophagitis Plan: Avoid the foods that causes that usually spicy foods, tomato products, juices, coffee, soda and foods that your sensitive to. After eating do not lie down, allow 3-4 hours before in lie down. And keep the head of bed above 30 degrees to avoid the acid from going up. (3) Hypercholesterolemia: Code(s): E78.00 - Pure hypercholesterolemia, unspecified Category: Medical Plan: Blood work request (4) BPH (benign prostatic hyperplasia): Code(s): N40.0 - Benign prostatic hyperplasia without lower urinary tract symptoms Category: Medical Qualifiers: Lower urinary tract symptom presence: symptoms absent Qualified Code(s): N40.0 - Benign prostatic hyperplasia without lower urinary tract symptoms Plan: Continue to follow-up with urology for surveillance yearly discussed that ultrasound was requested as well as the prostate number. (5) Left-sided chest pain: Code(s): R07.9 - Chest pain, unspecified Category: Medical Plan: Discussed that with rib fractures advised patient to intermittently breathing deep and hold to prevent collapse of the lung and pneumonia. Patient can take anti-inflammatory to help with the pain and if pain persists to call. (6) Fall: Comment: March 30 2024 Code(s): W19.XXXA - Unspecified fall, initial encounter Category: Medical Qualifiers: Encounter type: subsequent encounter Qualified Code(s): W19.XXXD - Unspecified fall, subsequent encounter Plan: Discussed on being careful. Will get the notes from Urgent Center and results of the x-ray. Orders: Orders Comprehensive Met. Panel Today E78.00 - Pure hypercholesterolemia, unspecified Thyroid Stimulating Hormone Today E78.00 - Pure hypercholesterolemia, unspecified Vitamin B12 and Folate Today E78.00 - Pure hypercholesterolemia, unspecified Complete Blood Count Auto Diff Today E78.00 - Pure hypercholesterolemia, unspecified Free T4 (Free Thyroxine) Today E78.00 - Pure hypercholesterolemia, unspecified Lipid Panel Today E78.00 - Pure hypercholesterolemia, unspecified
== END 2024-04-03 11:12 | disposition home or self-care (01) ==
PROVIDERS: PCP Internal Medicine; Visit Provider Internal Medicine
DX: Z00.00 Encounter for general adult medical examination without abnormal findings (principal); K21.9 Gastro-esophageal reflux disease without esophagitis; E78.00 Pure hypercholesterolemia, unspecified; N40.0 Benign prostatic hyperplasia without lower urinary tract symptoms; R07.9 Chest pain, unspecified; W19.XXXD Unspecified fall, subsequent encounter

== ENCOUNTER → 2024-04-03 10:20 | Outpatient (BNVA) | payer OTHER, SELFPAY | PROVIDERS: PCP Internal Medicine; Visit Provider Internal Medicine ==

== ENCOUNTER 2024-08-22 12:48 | Outpatient (REF) | payer OTHER, SELFPAY ==
--- NOTE | ~2024-08-22 | US_ITS ---
EXAMINATION: US SCROTUM HISTORY: N50.89 - Other specified disorders of the male genital organs. COMPARISON: Comparison is made with the prior examination dated 09/06/2021. FINDINGS: Real-time grayscale ultrasound imaging of the scrotum was performed. RIGHT TESTICLE: The right testis measures 4.9 x 2.4 x 3.3 cm and demonstrates normal homogeneous echotexture. No masses are seen. The right testis demonstrates normal color Doppler flow. RIGHT EPIDIDYMIS: Normal in size, shape, and vascularity. LEFT TESTICLE: The left testis measures 4.9 x 2.4 x 3.4 cm and demonstrates normal homogeneous echotexture. No masses are seen. The left testis demonstrates normal color Doppler flow. LEFT EPIDIDYMIS: Normal in size, shape, and vascularity. VARICOCELE: None. HYDROCELE: No significant hydrocele is seen. OTHER COMMENTS: None. US/US scrotum IMPRESSION: Unremarkable scrotal ultrasound. Electronically signed by: Alexsander Rincon MD 08/22/2024 02:18 PM EDT
== END 2024-08-22 12:49 | disposition home or self-care (01) ==
LOC: HO.US 12:48
PROVIDERS: PCP Internal Medicine; Visit Provider Urology
DX: N50.89 Other specified disorders of the male genital organs (principal)
CPT/HCPCS: 76870

== ENCOUNTER → 2024-08-22 12:52 | Outpatient (BNV) | payer OTHER, SELFPAY | PROVIDERS: PCP Internal Medicine; Visit Provider Radiology Diagnostic Radiology | DX: N50.89 Other specified disorders of the male genital organs (principal) | CPT/HCPCS: 76870; 93975 ==

== ENCOUNTER 2024-08-29 11:45 | Outpatient (AMB) | payer OTHER, SELFPAY ==
--- NOTE | 2024-08-29 11:25 | MHC.OFFVIS ---
Intake Visit Reasons: follow up/US Intake Note: Patient presents today via telehealth for a follow-up/US (last seen 12-19-23) Urology Meds- None Allergies to Antibiotic- Penicillin Blood Thinner- None Power Project Manager Required: No Accompanied by: Self / Same As Patient Allergies penicillin G Allergy (Unknown, Verified 08/29/24 11:48) rash Penicillins (PENICILLINS) Allergy (Unknown, Verified 08/29/24 11:48) HIVES HPI Comments Details: 08/29/24--FU. Discussed scrotal US - 08/22/24-- within normal limits. Mehrdad is a 58 year old male followed for BPH and microscopic hematuria, FH -father had prostate cancer. He denies LUTS of dysuria or urinary frequency. 12/19/23--FU microscopic hematuria. Asymptomatic. FU PSA - Mehrdad is a 58 year old male followed for BPH and microscopic hematuria, FH -father had prostate cancer. He denies LUTS of dysuria or urinary frequency. PSA 12/13/23-0.42 ng/mL. Cont to monitor. FU one year. renal US and PSA prior. 07/20/22-- Mehrdad is a 56-year-old male who is here for tele-health visit for microscopic hematuria and discussion of CT scan results. He Denies recurrence of dysuria and gross hematuria since last visit LV?01/13/22-- he was initially seen by nurse practitioner Soo and was sent for renal ultrasound. He denies irritative voiding symptoms. He has a family history of prostate cancer, father. He denies gross hematuria. 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 He is not on daily prescribed medication. I have reviewed the renal ultrasound results with the patient kidneys are within normal limits. Urinalysis today persistent microscopic hematuria. CTAP results reviewed?06/22/22-- Essentially within normal limits with small cyst midpole right kidney. PSA results reviewed?01/13/22-0.29. [facility] Medical History Joint pain Simple laceration of nose Nose abrasion Shoulder pain, bilateral Surgical History Hx of biopsy S/P fine needle aspiration Family History Father Myocardial infarct Prostate cancer Mother Lung cancer Brother Alcohol abuse Sister Alcohol abuse Social History Housing: House Alcohol intake: current Alcohol intake frequency: holidays/special occasions only Comment: beer q 2 days , once a month beer Patient Tobacco Use Status: Former Tobacco user Tobacco use type: Cigarette Years Smoked: 1989 e-Cigarette/Vaping Use: Never Used Second Hand Smoke Exposure: Yes service: No Current occupational status: employed Cognitive needs: No Hearing needs: No Vision needs: No Telehealth Telehealth Telehealth Platform: [employer] Location of provider rendering services: practice address Location of patient: address on file Patient Identification confirmed using: Name, : Yes Telehealth method: voice only Patient verbally consented to treatment: Yes Patient verbally consented to billing insurance company: Yes Patient informed of any privacy concerns related to visit: Yes Minutes spent on Phone/Video with Pt.: 13 Results Reviewed Results Reviewed: Date of Service: 08/22/24 EXAMINATION: US SCROTUM HISTORY: N50.89 - Other specified disorders of the male genital organs. COMPARISON: Comparison is made with the prior examination dated 09/06/2021. FINDINGS: Real-time grayscale ultrasound imaging of the scrotum was performed. RIGHT TESTICLE: The right testis measures 4.9 x 2.4 x 3.3 cm and demonstrates normal homogeneous echotexture. No masses are seen. The right testis demonstrates normal color Doppler flow. RIGHT EPIDIDYMIS: Normal in size, shape, and vascularity. LEFT TESTICLE: The left testis measures 4.9 x 2.4 x 3.4 cm and demonstrates normal homogeneous echotexture. No masses are seen. The left testis demonstrates normal color Doppler flow. LEFT EPIDIDYMIS: Normal in size, shape, and vascularity. VARICOCELE: None. HYDROCELE: No significant hydrocele is seen. OTHER COMMENTS: None. IMPRESSION: Unremarkable scrotal ultrasound. Assessment & Plan Assessment & Plan (1) Microscopic hematuria: Code(s): R31.29 - Other microscopic hematuria Category: Medical (2) BPH (benign prostatic hyperplasia): Code(s): N40.0 - Benign prostatic hyperplasia without lower urinary tract symptoms Category: Medical Qualifiers: Lower urinary tract symptom presence: symptoms absent Qualified Code(s): N40.0 - Benign prostatic hyperplasia without lower urinary tract symptoms (3) Screening PSA (prostate specific antigen): Code(s): Z12.5 - Encounter for screening for malignant neoplasm of prostate Category: Medical Plan FU cont PSA screening Patient Instructions: The patient had an opportunity to ask questions regarding treatment plan. The patient expressed understanding and agreement with the above treatment plan. The patient is aware they should contact our office by phone for worsening of their current condition or the appearance of new symptoms. Compliance is encouraged with any medications and followup testing that is ordered. It is a privilege to be allowed the opportunity to participate in the urologic care of your patient. If you have any questions or concerns regarding treatment for the above conditions please do not hesitate to contact me. The office telephone contact is [phone]. This note is constructed in part using voice recognition software. While every effort has been made to ensure accuracy fine grade bulldozer operator errors may have been included. Yours sincerely, Bertrand Floyd MD Coding Level of Care Code Tele Est Pt Level 3 (90208) Diagnoses Microscopic hematuria R31.29 Benign prostatic hyperplasia without lower urinary tract symptoms N40.0 Lower urinary tract symptom presence: symptoms absent Screening PSA (prostate specific antigen) Z12.5
== END 2024-08-29 16:00 | disposition home or self-care (01) ==
LOC: HO.HUSH 11:45
PROVIDERS: PCP Internal Medicine; Visit Provider Urology
DX: R31.29 Other microscopic hematuria (principal); N40.0 Benign prostatic hyperplasia without lower urinary tract symptoms; Z12.5 Encounter for screening for malignant neoplasm of prostate
CPT/HCPCS: 99213

== ENCOUNTER 2024-11-27 16:03 | Outpatient (REF) | payer OTHER, SELFPAY ==
--- NOTE | ~2024-11-27 | US_ITS ---
CLINICAL HISTORY: R31.29 - Other microscopic hematuria US Renal Comparison: US/[place]/SR - US KIDNEY BILATERAL - 12/22/21 08:34 EDT Findings: Right kidney measures 10.0 x 4.1 x 4.4 cm in size. Left kidney measures 10.6 x 5.2 x 5.5 cm in size. Kidneys are of normal echotexture bilaterally without focal lesion, nephrolithiasis, or hydronephrosis. IMPRESSION: Negative renal ultrasound. This document has been electronically signed by: Dominic Khoury MD on 11/28/2024 08:01:07
--- OUTSIDE RECORDS SUMMARY | 2024-11-27 18:52 | XMS_ITS | Patient Health Record ---
Author Organization [facility] Address [address] [place] [address] Care Team Providers Care Captain Assistant Name Role Phone Ángel Lira MD Primary Care Provider Alexsander Espinoza [phone] Allergies Allergen (clinical drug ingredient) Drug/Non Drug Allergy documented on EMR Reaction Allergy Type Onset Date Status penicillin G Penicillin G Sodium Unknown Drug Allergy Active Reason For Referral No Information Immunizations Vaccine Route Administration Date Status Comme nts Influenza Unknown 11/17/2018 Administered Social History Tobacco Use: Social History Observation Description Date Details (start date - stop date) Former Smoker NA - NA Tobacco Use/Smoking Question Answer Notes Patient is a former smoker When did you stop smoking? 30 plus years ago Alcohol Screen Question Answer Notes Did you have a drink containing alcohol in the p ast year? No Points 0 Interpretation Negative Section Notes: Nonsmoker; no sig. alcohol Problems Problem Type SNOMED Code ICD Code Onset Dates Problem Status W/U Status Risk Notes Problem [id number] Encounter for screening for malignant neoplasm of colon (Z12.11) Active confirmed Problem [id number] Preprocedural examination (Z01.818) Active confirmed Plan Of Treatment No Information Insurance Providers Payer Name Payer Address Payer Phone Subscriber Number Group Number Insured Name Patient Relationship to Insured Coverage Start Date Coverage End Date [facility] [address] [place] [phone] [id number] MOHAMUD ERICKSON Self - patient is the insured Medical (General) History Medical History History ICD Code Denies PR,DM,CVA,Lung disease,renal dise ase Surgical History Surgery Date(Month/Year)
== END 2024-11-27 16:04 | disposition home or self-care (01) ==
LOC: HO.US 16:03
PROVIDERS: PCP Internal Medicine; Visit Provider Urology
DX: R31.29 Other microscopic hematuria (principal)
CPT/HCPCS: 76775

== ENCOUNTER → 2024-11-27 16:04 | Outpatient (BNV) | payer OTHER, SELFPAY | PROVIDERS: PCP Internal Medicine; Visit Provider Radiology Diagnostic Radiology | DX: R31.29 Other microscopic hematuria (principal) | CPT/HCPCS: 76775 ==

== ENCOUNTER 2024-11-28 08:05 | Outpatient (REF) | payer OTHER, SELFPAY ==
--- OUTSIDE RECORDS SUMMARY | 2024-11-28 08:24 | XMS_ITS | Patient Health Record ---
Author Organization [facility] Address [address] [place] [address] Care Team Providers Care Gypsum Roofer Name Role Phone Ángel Lira MD Primary Care Provider Alexsnader Espinoza [phone] Allergies Allergen (clinical drug ingredient) Drug/Non Drug [...] Problem Status W/U Status Risk Notes Problem [id number] Encounter for screening for malignant neoplasm of colon (Z12.11) Active confirmed Problem [id number] Preprocedural examination (Z01.818) Active confirmed Plan Of Treatment No Information Insurance Providers Payer Name Payer Address Payer Phone Subscriber Number Group Number Insured Name Patient Relationship to Insured Coverage Start Date Coverage End Date [facility] [address] [place] [phone] [id number] MOHAMUD ERICKSON Self - patient is the insured Medical (General) History Medical History History ICD Code Denies GA,DM,CVA,Lung disease,renal dise ase Surgical History Surgery Date(Month/Year)
[2024-11-28 09:30] LABS: PSA,Total (Free>4and<10) 0.26 ng/mL (0.00-4.00)
== END 2024-11-28 08:06 | disposition home or self-care (01) ==
LOC: HO.LAB 08:05
PROVIDERS: PCP Internal Medicine; Visit Provider Urology
DX: Z12.5 Encounter for screening for malignant neoplasm of prostate (principal); N40.1 Benign prostatic hyperplasia with lower urinary tract symptoms; R31.29 Other microscopic hematuria
CPT/HCPCS: 36415; 84153; 88112

== ENCOUNTER 2024-12-04 16:22 | Outpatient (AMB) | payer OTHER, SELFPAY ==
--- NOTE | 2024-12-04 16:16 | MHC.OFFVIS ---
Intake Visit Reasons: 11w/US Intake Note: Patient presents today via telehealth for a 11w follow-up/US 11/28 Renal US 11/28 Total PSA: 0.26 Urology Meds- None Allergies to Antibiotic- Penicillin Blood Thinner- None Beater Room Helper Required: No Accompanied by: Self / Same As Patient Allergies penicillin G Allergy (Unknown, Verified 12/04/24 16:24) rash Penicillins (PENICILLINS) Allergy (Unknown, Verified 12/04/24 16:24) HIVES Medication List - Last Reconciled 12/04/24 by Bertrand Floyd MD ibuprofen 800 mg PO TID HPI Comments Details: 12/04/24--Mehrdad presents as a telehealth follow-up. He has been evaluated due to microscopic hematuria and family history father with prostate cancer. The patient states his father from prostate cancer. I have reviewed recent PSA 11/28/24 is 0.26ng/mL. The patient denies any lower urinary tract symptoms at this time. He had a recent renal ultrasound 11/27/24-kidneys within normal limits. Plan is to continue to monitor PSA. Follow-up in 1 year. 08/29/24--FU. Discussed scrotal US - 08/22/24-- within normal limits. Mehrdad is a 58 year old male followed for BPH and microscopic hematuria, FH -father had prostate cancer. He denies LUTS of dysuria or urinary frequency. 12/19/23--FU microscopic hematuria. Asymptomatic. FU PSA - Mehrdad is a 58 year old male followed for BPH and microscopic hematuria, FH -father had prostate cancer. He denies LUTS of dysuria or urinary frequency. PSA 12/13/23-0.42 ng/mL. Cont to monitor. FU one year. renal US and PSA prior. 07/20/22-- Mehrdad is a 56-year-old male who is here for tele-health visit for microscopic hematuria and discussion of CT scan results. He Denies recurrence of dysuria and gross hematuria since last visit LV?01/13/22-- he was initially seen by nurse practitioner Soo and was sent for renal ultrasound. He denies irritative voiding symptoms. He has a family history of prostate cancer, father. He denies gross hematuria. 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 He is not on daily prescribed medication. I have reviewed the renal ultrasound results with the patient kidneys are within normal limits. Urinalysis today persistent microscopic hematuria. CTAP results reviewed?06/22/22-- Essentially within normal limits with small cyst midpole right kidney. PSA results reviewed?01/13/22-0.29. PFSH Medical History Joint pain Simple laceration of nose Nose abrasion Shoulder pain, bilateral Surgical History Hx of biopsy S/P fine needle aspiration Family History Father Myocardial infarct Prostate cancer Mother Lung cancer Brother Alcohol abuse Sister Alcohol abuse Social History Housing: House Alcohol intake: current Alcohol intake frequency: holidays/special occasions only Comment: beer q 2 days , once a month beer Patient Tobacco Use Status: Former Tobacco user Tobacco use type: Cigarette Years Smoked: stopped 1989 e-Cigarette/Vaping Use: Never Used Second Hand Smoke Exposure: Yes service: No Current occupational status: employed Cognitive needs: No Hearing needs: No Vision needs: No Review of Systems Const All systems reviewed & are unremarkable except as noted in HPI and below Reports no additional complaints Eyes Reports no additional complaints ENT Reports no additional complaints Card Reports no additional complaints Resp Reports no additional complaints GI Reports no additional complaints Reports as per HPI Musc Reports no additional complaints Skin/Breast Reports system reviewed and no additional complaints, except as documented Neuro Reports no additional complaints Psych Reports no additional complaints Endo Reports no additional complaints Tanner/Lymph Reports no additional complaints Aller/Immun Reports no additional complaints Telehealth Telehealth Telehealth Platform: Telephone Location of provider rendering services: practice address Location of patient: address on file Patient Identification confirmed using: Name, : Yes Telehealth method: voice only Patient verbally consented to treatment: Yes Patient verbally consented to billing insurance company: Yes Patient informed of any privacy concerns related to visit: Yes Minutes spent on Phone/Video with Pt.: 13 Results Reviewed Results Reviewed: Date of Service: 11/27/24 Other microscopic hematuria US Renal Comparison: US/[place]/SR - US KIDNEY BILATERAL - 12/22/21 08:34 EDT Findings: Right kidney measures 10.0 x 4.1 x 4.4 cm in size. Left kidney measures 10.6 x 5.2 x 5.5 cm in size. Kidneys are of normal echotexture bilaterally without focal lesion, nephrolithiasis, or hydronephrosis. IMPRESSION: Negative renal ultrasound. Assessment & Plan Assessment & Plan (1) Microscopic hematuria: Code(s): R31.29 - Other microscopic hematuria Category: Medical (2) BPH (benign prostatic hyperplasia): Code(s): N40.0 - Benign prostatic hyperplasia without lower urinary tract symptoms Category: Medical Qualifiers: Lower urinary tract symptom presence: symptoms absent Qualified Code(s): N40.0 - Benign prostatic hyperplasia without lower urinary tract symptoms (3) Screening PSA (prostate specific antigen): Code(s): Z12.5 - Encounter for screening for malignant neoplasm of prostate Category: Medical (4) FH: prostate carcinoma: Code(s): Z80.42 - Family history of malignant neoplasm of prostate Category: Medical Plan He has been evaluated due to microscopic hematuria and family history father with prostate cancer. I have reviewed recent PSA 11/28/24 is 0.26ng/mL. The patient denies any lower urinary tract symptoms at this time. He had a recent renal ultrasound 11/27/24-kidneys within normal limits. Plan is to continue to monitor PSA. Follow-up in 1 year Orders: Orders PSA,Total (Free>4and<10) 11 Months Z12.5 - Encounter for screening for malignant neoplasm of prostate, Z80.42 - Family history of malignant neoplasm of prostate Patient Instructions: The patient had an opportunity to ask questions regarding treatment plan. The patient expressed understanding and agreement with the above treatment plan. The patient is aware they should contact our office by phone for worsening of their current condition or the appearance of new symptoms. Compliance is encouraged with any medications and followup testing that is ordered. It is a privilege to be allowed the opportunity to participate in the urologic care of your patient. If you have any questions or concerns regarding treatment for the above conditions please do not hesitate to contact me. The office telephone contact is [phone]. This note is constructed in part using voice recognition software. While every effort has been made to ensure accuracy maple products supervisor errors may have been included. Yours sincerely, Bertrand Floyd MD Coding Level of Care Code Tele Est Pt Level 3 (99709) Diagnoses Microscopic hematuria R31.29 Benign prostatic hyperplasia without lower urinary tract symptoms N40.0 Lower urinary tract symptom presence: symptoms absent Screening PSA (prostate specific antigen) Z12.5 FH: prostate carcinoma Z80.42
== END 2024-12-04 18:11 ==
LOC: HO.HUSH 16:22
PROVIDERS: PCP Internal Medicine; Visit Provider Urology
DX: R31.29 Other microscopic hematuria (principal); N40.0 Benign prostatic hyperplasia without lower urinary tract symptoms; Z12.5 Encounter for screening for malignant neoplasm of prostate; Z80.42 Family history of malignant neoplasm of prostate
CPT/HCPCS: 99213